=== PATIENT | male | born 1950 | race Caucasian/White ===

== ENCOUNTER 2017-10-18 09:37 | Inpatient (IN) | payer BC, OTHER ==
[~2017-10-18] VITALS: Ht 170.2 cm; Wt 60.3 kg
[2017-10-19] VITALS (7 sets, daily range): BP systolic 72–143; BP diastolic 53–88
[2017-10-19] MEDS ORDERED: DIAZEPAM 10 MG TABLET PO PRN ×2 (00:15)
[2017-10-19] MEDS ORDERED: hydrALAZINE HCL 50 MG TABLET PO PRN (00:15)
[2017-10-19] MEDS ORDERED: METHOCARBAMOL 750 MG TABLET PO PRN (00:15)
[2017-10-19] MEDS ORDERED: diphenhydrAMINE 50 MG CAPSULE PO PRN (00:15)
[2017-10-19] MEDS ORDERED: ALBUTEROL SULFATE 2.5 MG/ 0.5 ML NEBU NEB PRN (00:15)
[2017-10-19] MEDS ORDERED: MIRALAX 17 GM POWD.PACK PO PRN (00:15)
[2017-10-19] MEDS ORDERED: DIAZEPAM 5 MG TABLET PO PRN (00:15)
[2017-10-19] MEDS ORDERED: IBUPROFEN 600 MG TABLET PO PRN (00:15)
[2017-10-19] MEDS ORDERED: LOPERAMIDE HCL 2 MG CAPSULE PO PRN ×2 (00:15)
[2017-10-19] MEDS ORDERED: MAGNESIUM HYDROXIDE 30 ML LIQUID UDC PO PRN (00:15)
[2017-10-19] MEDS ORDERED: CLONIDINE HCL 0.1 MG TABLET PO PRN (00:15)
[2017-10-19] MEDS ORDERED: MAG HYDROX/AL HYDROX/SIMETH 30 ML LIQUID UDC PO PRN (00:15)
[2017-10-19] MEDS ORDERED: DOCUSATE SODIUM 250 MG CAPSULE PO PRN (00:15)
[2017-10-19] MEDS ORDERED: ONDANSETRON ODT 4 MG TAB.RAPDIS SL PRN (00:15)
[2017-10-19] MEDS ORDERED: DICYCLOMINE HCL 20 MG TABLET PO PRN (00:15)
[2017-10-19] MEDS ORDERED: BUPRENORPHINE HCL 2 MG TAB.SUBL SL PRN (00:15)
[2017-10-19] MEDS ORDERED: LORAZEPAM 2 MG/1 ML VIAL IM PRN (00:15)
[2017-10-19] MEDS ORDERED: ACETAMINOPHEN 325 MG TABLET PO PRN (00:15)
[2017-10-19] MEDS ORDERED: ONDANSETRON 4 MG/2 ML VIAL IM PRN (00:15)
--- NOTE | 2017-10-19 01:00 | NUR ---
Pre-admission assessment Patient is a 67-year old, male, seen at intake, AAOx4, no SOB and no anxiety noted at this time. Discussed with patient admission policies of the unit. Patient is coherent and able to respond to questions appropriately. Patient reported that he is from [place], [place]. Pt is ambulatory with steady gait. Pt reports using these substance daily: Switchback, Valium and Xanax PO daily for the last 6 months. Vital signs taken and as follows: SQ=163/87, P=83, O2 sat on RA=91%, RR=16, T=98.6. Per pt, he has low SPO2 baseline because of his severe COPD. Pt verbalized instructions and teachings regarding disposal of narcotic and other controlled home meds, unit protocols such as taking of vital signs Q4H and handling and disposal of contraband.
[2017-10-19 01:10] LABS: BASOPHILS # (AUTO) 0.1 K/uL (0.0-8.0); BASOPHILS % (AUTO) 0.9 % (0.0-2.0); EOSINOPHILS # (AUTO) 0.3 K/uL (0.0-0.7); EOSINOPHILS % (AUTO) 3.5 % (0.0-7.0); HEMATOCRIT 51.2 % (36.7-47.1); HEMOGLOBIN 17.5 g/dL (12.5-16.3); LYMPHOCYTES % (AUTO) 10.6 % (20.5-51.5); MEAN CORPUSCULAR HEMOGLOBIN 32.3 uug (23.8-33.4); MEAN CORPUSCULAR HGB CONC 34 g/dL (32.5-36.3); MEAN CORPUSCULAR VOLUME 94.6 fL (73.0-96.2); MONOCYTES # (AUTO) 0.7 K/uL (2.0-10.0); MONOCYTES % (AUTO) 6.7 % (0.0-11.0); NEUTROPHILS # (AUTO) 7.7 K/uL (1.8-8.9); NEUTROPHILS % (AUTO) 78.3 % (38.5-71.5); PLATELET COUNT (AUTO) 201 K/uL (152-348); RED BLOOD CELL COUNT(AUTO) 5.41 MIL/uL (4.06-5.63); WHITE BLOOD COUNT (AUTO) 9.8 K/uL (3.6-10.2)
[2017-10-19 01:20] LABS: ALANINE AMINOTRANSFERASE 31 U/L (16-63); ALKALINE PHOSPHATASE 51 U/L (50-136); ASPARTATE AMINOTRANSFERASE 53 U/L (15-37); BILIRUBIN,TOTAL 1.3 mg/dL (0.2-1.0); CARBON DIOXIDE 30 mmol/L (21-32); CHLORIDE 104 mmol/L (98-107); CREATININE 1.3 mg/dL (0.6-1.3); GLUCOSE 109 mg/dL (74-106); POTASSIUM 3.6 mmol/L (3.5-5.1); TOTAL PROTEIN, SERUM 7.4 g/dL (6.4-8.2); UREA NITROGEN, BLOOD 21 mg/dL (7-18)
[2017-10-19] MEDS ORDERED: DULO60CA45 PO (01:20)
[2017-10-19] MEDS ORDERED: FINA5TAB3 PO (01:20)
[2017-10-19] MEDS ORDERED: TAMS0.4C34 PO (01:20)
[2017-10-19] MEDS ORDERED: OMEP40CA37 PO (01:20)
[2017-10-19] MEDS ORDERED: TIOT18CA3 IH (01:20)
[2017-10-19] MEDS ORDERED: BUDE10.2 IH (01:20)
[2017-10-19] MEDS ORDERED: IRBE150T30 PO (01:20)
[2017-10-19] MEDS ORDERED: FLUO60SO3 TP (01:20)
[2017-10-19 01:32] LABS: ETHANOL < 3 MG/DL (0-0)
[2017-10-19 01:36] LABS: *AMPHETAMINE, URINE NEGATIVE (NEGATIVE); *BARBITURATE, URINE NEGATIVE (NEGATIVE); *CANNABINOID, URINE NEGATIVE (NEGATIVE); *COCCAINE, URINE NEGATIVE (NEGATIVE); *OPIATE, URINE NEGATIVE (NEGATIVE); *PHENCYCLIDINE SCREEN,URINE NEGATIVE (NEGATIVE)
--- NOTE | 2017-10-19 02:10 | NUR ---
ADMISSION Patient is a 67-year old, male, admitted and escorted by SMALL ENGINE MECHANIC at 0110 to unit. Patient verbalized that he lives in a house with his in [place], [place]. Skin check done, with healing abrasion noted on the right elbow. No bleeding noted. Patient denies Suicidal Ideation nor Homicidal Ideation. No edema noted. Per pt, he sometimes develops edema on BLE due to severe COPD. Pt is ambulatory with steady gait. Pt stands 5'7" and weighs 133 pounds per bed scale. Vital signs are as follows: BP-118/74, T-98.1, P-84, RR-18 and SPO2 on RA=92%. Patient is AAOx4 and with anxiety noted at this time. Patient noted to be forgetful. Lung sounds appear diminished on all ochoa upon auscultation. With non-productive cough noted and bowel sounds are present on all quadrants. PERRLA and pupils are 2 mm upon visual check. Pt denies allergies, history of seizures, on Regular Diet and is Full Code. Per pt, withdrawal symptoms are cold sweats, hot flushes, anxiety, depression, restless legs, emotional volatility, generalized muscle pain, insomnia and forgetfulness. Pt reports that he used these substance daily: 1) [place] 10/325 mg- 6 pills PO daily x 6 months 2) Valium 15 mg PO daily x 6 months 3) Xananx 4 mg PO daily x 6 months Patient verbalized the she does not take other substances besides the ones mentioned above. Patient also denies smoking tobacco/cigarettes. Patient informed PMHx of BPH,Urinary Retention, Hypertension, Hyperlipidemia, Severe COPD, GERD, Anxiety, Depression, Migraine, Scoliosis, Hepatitis C, Oral Fungus, Leg Cramps, BLE Edema and Multiple Surgeries from a fall in the 1960s. Home meds were reconciled. No Psych MD as of the moment and PCP is Dr. Lind. Patient was placed on a Valium taper, ending on 10/23 PM. Oriented patient to room and instructed with the use of the call light, placed within reach. Fall, universal, seizure and safety precautions implemented. Patient c/o 2/10 generalized pain. All needs met. Information relayed to Dr. Morales. Patient refused PNA vaccine and Flu vaccine. COWS=7, CIWA=8. Will continue to monitor.
[2017-10-19] MEDS ORDERED: LINA72CA PO (02:34)
--- NOTE | 2017-10-19 07:04 | NUR ---
End of Shift RN note Pt asleep on bed, continues to be anxious and melancholic, AAOx4 and forgetful. Pt appears older than stated age. Pt was having some delay in responding to questions. SPO2 on RA continues to hover between 90-92% and pt refused O2 supplement. DVT pumps at bedside and patient refused for the sleeves to be applied. With breathing treatment PRN. Skin appears to be tenting. With 2/10 generalized pain and tremors noted. Pt slept for 4 hours. Latest COWS=7, CIWA=7. Endorsed to AM shift nurse for continuity of care.
--- NOTE | 2017-10-19 07:20 | NUR ---
START OF SHIFT RECEIVED PT RESTING IN BED, SEEMS TO BE CONFUSED BUT A/OX4. RESPIRATIONS EVEN AND UNLABORED. PT DENIES SOB. PT C/O LOWER BACK AND NECK PAIN 04/07. PT REPORTS HAVING CHILLS, SWEATING, PILOERECTION OF THE SKIN, FEELING COLD, GENERALIZED BODY ACHES, ANXIETY, RESTLESSNESS, SENSITIVITY TO LIGHT, PINS AND NEEDLES, NUMBNESS SENSATIONS, AND BURNING SENSATIONS IN THE HANDS AND FEET. PT STATES, "I DON'T HAVE MUCH OF AN APPETITE." ENCOURAGED PT TO INCREASE FLUIDS TO PROMOTE HYDRATION. SIDE RAILS UPX2 AND PADDED, BED IS IN LOWEST POSITION. CALL LIGHT WITHIN REACH. ALL SAFETY MEASURES IN PLACE. WILL CONTINUE TO MONITOR. Addendum: 10/19/17 at 1156 by SHONDA AGUILAR RN SCD AT BEDSIDE.
[2017-10-19] MEDS ORDERED: DIAZEPAM 10 MG TABLET PO SCH (09:00)
[2017-10-19] MEDS ORDERED: PATIENT MAY USE OWN MED- MD OK PO SCH ×2 (09:15→21:00)
[2017-10-19] MEDS ORDERED: PATIENT MAY USE OWN MED- MD OK PO PRN (09:15)
--- NOTE | 2017-10-19 09:16 | NUR ---
PRN SUBUTEX 4 MG SL PRN FOR COWS 16. PT C/O CHILLS, SWEATING, STOMACH CRAMPS, GENERALIZED BODY ACHES, PILOERECTION OF THE SKIN AND TREMORS SEEN. WILL MONITOR FOR EFFECTIVENESS.
--- NOTE | 2017-10-19 10:20 | NUR ---
REASSESSMENT PT APPEARS CALM, REPORTS MED WAS EFFECTIVE FOR S/S OF W/D. COWS 12.
[2017-10-19] MEDS ORDERED: LORAZEPAM 1 MG TABLET PO PRN ×2 (11:30)
[2017-10-19] MEDS ORDERED: LORAZEPAM 1 MG TABLET PO SCH (15:00)
--- NOTE | 2017-10-19 15:45 | NUR ---
1500 ATIVAN 2 MG PO TAPER DOSE HELD D/T PT IS TOO SEDATED.
--- NOTE | 2017-10-19 16:00 | NUR ---
DEFERRED COWS/CIWA DUE TO PT SLEEPING. Addendum: 10/19/17 at 1920 by SHONDA AGUILAR RN PT AROUSABLE TO TOUCH AND WAS ABLE TO VERBAL RESPONSES AND FOLLOW COMMANDS. PT STATED, "I FEEL MUCH BETTER." PT'S SKIN IS MOIST TO TOUCH. ENCOURAGED PT TO INCREASE FLUIDS. ALL SAFETY MEASURES IN PLACE. WILL CONTNUE TO MONITOR.
[2017-10-19] MEDS ORDERED: PATIENT MAY USE OWN MED- MD OK INH SCH (17:00)
--- NOTE | 2017-10-19 17:30 | NUR ---
RAPID RESPONSE NOTE RAPID RESPONSE WAS CALLED FOR PT. PT WAS AROUSABLE TO VERBAL AND TACTILE STIMULATION. PT OPENED EYES FOR 2 SECONDS AT A TIME. PT WAS ABLE TO FOLLOW COMMANDS. PT WAS NOT ABLE TO RESPOND VERBALLY. PT WAS ABLE TO RAISE ARMS ABOVE HEAD DRIFTING AFTER 3 SECS. PT WAS GIVEN SMALL SIPS OF WATER AND PT WAS ABLE TO SWALLOW WATER. PT WAS NOT ABLE TO RESPOND VERBALLY. VS WERE BP:72/53, HR: 120, O2 SAT: 52% ON RA. RAPID RESPONSE CALLED AT 1650. DR. WELLS NOTIFIED. PT WAS TRANSFERRED TO AT 1715. VS PRIOR TO TRANSFER WERE BP: 92/64, HR:115, RR: 10, O2 SAT: 80% ON 3L NC, T: 98.0, BS: 150. Addendum: 10/19/17 at 1811 by SHONDA AGUILAR RN REPORT ON PT AND HOME MEDS GIVEN TO ER. Addendum: 10/19/17 at 1827 by SHONDA AGUILAR RN RAPID RESPONSE/TRANSFER TO ER NOTE
[2017-10-20 08:07] LABS: HEPATITIS B SURFACE AG Negative (Negative)
[2017-10-20] MEDS ORDERED: FINASTERIDE 5 MG PO SCH (09:00)
[2017-10-20] MEDS ORDERED: TUBERCULIN,PURIF.PROT.DERIV. 5 TU/0.1 ML TEST ID ONE (09:00)
[2017-10-20] MEDS ORDERED: SPIRIVA INH SCH (09:00)
[2017-10-20] MEDS ORDERED: LORAZEPAM 1 MG TABLET PO SCH (09:00)
[2017-10-20] MEDS ORDERED: DIAZEPAM 10 MG TABLET PO SCH (09:00)
[2017-10-20] MEDS ORDERED: PATIENT MAY USE OWN MED- MD OK PO SCH (09:00)
[2017-10-21] MEDS ORDERED: DIAZEPAM 5 MG TABLET PO SCH (09:00)
[2017-10-21] MEDS ORDERED: LORAZEPAM 1 MG TABLET PO SCH (09:00)
[2017-10-22] MEDS ORDERED: LORAZEPAM 1 MG TABLET PO SCH (09:00)
[2017-10-22] MEDS ORDERED: DIAZEPAM 5 MG TABLET PO SCH (09:00)
[2017-10-23] MEDS ORDERED: DIAZEPAM 5 MG TABLET PO SCH (09:00)
[2017-10-23] MEDS ORDERED: LORAZEPAM 1 MG TABLET PO SCH (09:00)
[2017-10-27] MEDS ORDERED: CLON1PAT TD (16:56)
[2017-10-27] MEDS ORDERED: METO50TA16 PO (16:56)
[2017-10-27] MEDS ORDERED: CEFE1VIA7 IM (16:56)
[2017-10-27] MEDS ORDERED: ATOR40TA PO (16:56)
[2017-10-27] MEDS ORDERED: ALBU1.25 NEB (16:56)
[2017-10-27] MEDS ORDERED: QUET25TA PO (16:56)
[2017-10-27] MEDS ORDERED: AMLO10TA2 PO (16:56)
[2017-10-27] MEDS ORDERED: ASPI81TA31 PO (16:56)
[2017-10-27] MEDS ORDERED: FLUC100T8 PO (16:56)
--- NOTE | 2017-10-27 18:43 | NUR ---
ON UNIT Patient arrived on the unit at 183, received report from: Paolo med surg nurse. Patient on the unit via gurney escorted by two wait staff, immediately placed patient on 1: 1 sitter for safety precautions. Safety measures are in place. Call light with in reach. Fall and seizure precautions observed and in place. As per report: Received report from Paolo med surg nurse. Per report patient is a 67 year old male. Patient was transferred from ICU- to telemetry unit to med surg unit. Patient is alert to self, per nurse patient with episodes of confusion, scrambled words and delirium with episodes of agitation. Patient has a sitter 1:1 for safety precautions. Last BP: 142/89 hr: 105. Patient has past medical history of: HTN, BPH, COPD, Hep c +, GERD, scoliosis, Opiate/bzo dependence. Patient admitting diagnoses at [facility] due acute respiration failure. Patient is NKA, full code; puree diet for aspiration precautions per Nurse Paolo patient is able to tolerate oral pills well. Patient is currently on 2L/min via NC of O2. Patient has picc line on right upper arm, triple lumen; patients Rodriguez catheter discontinued in med surg. Patient had PT eval today and are able to ambulate 40 feet with 50% assistance. Patient had sputum culture done, as per results patient has respiratory infection (Inessa albicans). CXR done, per results infiltrates. Per report patient had wheezing and breathing treatment was given. Addendum: 10/27/17 at 1856 by JIMMY PARKER LVN per report, patient did not receive any ativan or morphine while on med surg for today.
--- NOTE | 2017-10-27 18:58 | NUR ---
END OF SHIFT Patient currently in bed, with 1: 1 sitter, is confused and disoriented, patient is alert to name. patient at high risk for fall and self injury d/t poor safety awareness continues under very close observation. seizure precautions in place. patient currently with o2 2l/min via NC, patient with multiple episodes of removing NC. reapplied as needed. bp: 151/86 hr: 105 r: 20 t: 98.0 o2 sat: 98% with O2 2L/min VIA NC. patient endorsed to floor covering printer nurse, all pertinent information was discussed. safety measures are in place. will continue to monitor.
--- NOTE | 2017-10-27 19:15 | NUR ---
Start of Shift Note: Received report from day shift nurse. Patient is a 67 year old male, presented in his room and is bed bound. Patient awake, alert & oriented x1. Patient is awake, disoriented & confused. Patient requires to be called multiple times, however does not respond to name. Patient unable to follow direction and unable to answer questions. Pt noted to be very confused, and is noted to be biting on nasal cannula, despite trying to gently remove NC from pts mouth. Pt is also biting his own nails and noted to be extremely restless. On 1:1 sitter for safety precaution within arms reach. Per report patient is high risk for fall d/t pt multiple attempts to get out of bed. Patient currently is incontinent and wears diaper. Pt noted with redness on coccyx area & elbows, skin noted to be intact. Pt also noted with bruising on bilateral arms. Patient has a 3 lumen PICC line on his right upper arm patent and intact. Pt continuously picks at PICC line site. Site was covered with Kerlix to prevent pt from picking at the PICC line site. On O2 via nasal cannula at 2Lpm. No shortness of breath noted at this time. Abdomen soft & non-distended. No N/V/D noted. Pt appears restless and unable to sit still. No s/s of pain/discomfort noted. No facial grimacing noted. Continue to closely monitor patient. Vitals noted within normal range. Temp: 97.4, B/P 131/92, GA 97, RR 16, O2Sat @ 94%. Safety measures in place. Bed locked in lowest position. Both side rails up. Call light within pts reach. Will continue to monitor patient.
[2017-10-27 20:00] VITALS: BP 131/92
[2017-10-27] MEDS ORDERED: MAG HYDROX/AL HYDROX/SIMETH 30 ML LIQUID UDC PO PRN (20:00)
[2017-10-27] MEDS ORDERED: ONDANSETRON 4 MG/2 ML VIAL IM PRN (20:00)
[2017-10-27] MEDS ORDERED: DICYCLOMINE HCL 20 MG TABLET PO PRN (20:00)
[2017-10-27] MEDS ORDERED: CLONIDINE-TTS 1 PATCH TD SCH (20:00)
[2017-10-27] MEDS ORDERED: QUETIAPINE FUMARATE 25 MG TABLET PO PRN (20:00)
[2017-10-27] MEDS ORDERED: CLONIDINE HCL 0.1 MG TABLET PO PRN (20:00)
[2017-10-27] MEDS ORDERED: MAGNESIUM HYDROXIDE 30 ML LIQUID UDC PO PRN (20:00)
[2017-10-27] MEDS ORDERED: LOPERAMIDE HCL 2 MG CAPSULE PO PRN ×2 (20:00)
[2017-10-27] MEDS ORDERED: ONDANSETRON ODT 4 MG TAB.RAPDIS SL PRN (20:00)
[2017-10-27] MEDS ORDERED: ACETAMINOPHEN 325 MG TABLET PO PRN (20:00)
[2017-10-27] MEDS ORDERED: hydrALAZINE HCL 25 MG TABLET PO PRN (20:00)
[2017-10-27] MEDS ORDERED: MIRALAX 17 GM POWD.PACK PO PRN (20:00)
[2017-10-27] MEDS ORDERED: LORAZEPAM 1 MG TABLET PO PRN (20:00)
[2017-10-27] MEDS ORDERED: LORAZEPAM 2 MG/1 ML VIAL IM PRN (20:00)
[2017-10-27 20:44] LABS: BASOPHILS % (AUTO) 0.1 % (0.0-2.0); HEMATOCRIT 45.7 % (36.7-47.1); HEMOGLOBIN 15.2 g/dL (12.5-16.3); LYMPHOCYTES # (AUTO) 0.4 K/uL (20.0-40.0); LYMPHOCYTES % (AUTO) 3.5 % (20.5-51.5); MEAN CORPUSCULAR HEMOGLOBIN 31.3 uug (23.8-33.4); MEAN CORPUSCULAR HGB CONC 33 g/dL (32.5-36.3); MEAN CORPUSCULAR VOLUME 93.9 fL (73.0-96.2); MONOCYTES # (AUTO) 1.6 K/uL (2.0-10.0); MONOCYTES % (AUTO) 12.2 % (0.0-11.0); NEUTROPHILS # (AUTO) 10.8 K/uL (1.8-8.9); NEUTROPHILS % (AUTO) 84.2 % (38.5-71.5); PLATELET COUNT (AUTO) 188 K/uL (152-348); RED BLOOD CELL COUNT(AUTO) 4.86 MIL/uL (4.06-5.63); WHITE BLOOD COUNT (AUTO) 12.9 K/uL (3.6-10.2)
[2017-10-27] MEDS ORDERED: QUETIAPINE FUMARATE 25 MG TABLET PO SCH (21:00)
[2017-10-27 21:02] LABS: ETHANOL < 3 MG/DL (0-0)
[2017-10-27 21:06] LABS: ALANINE AMINOTRANSFERASE 38 U/L (16-63); ALKALINE PHOSPHATASE 56 U/L (50-136); AMYLASE 47 U/L (25-115); ASPARTATE AMINOTRANSFERASE 31 U/L (15-37); BILIRUBIN,TOTAL 0.9 mg/dL (0.2-1.0); CARBON DIOXIDE 29 mmol/L (21-32); CHLORIDE 105 mmol/L (98-107); GLUCOSE 148 mg/dL (74-106); LIPASE 237 U/L (73-393); MAGNESIUM 1.9 mg/dL (1.8-2.4); POTASSIUM 3.4 mmol/L (3.5-5.1); TOTAL PROTEIN, SERUM 5.9 g/dL (6.4-8.2); UREA NITROGEN, BLOOD 22 mg/dL (7-18)
[2017-10-27 21:31] LABS: THYROID STIMULATING HORMONE 1.689 mIU/mL (0.358-3.740)
[2017-10-27] MEDS ORDERED: THIAMINE HCL 200 MG/2 ML VIAL IM ONE (22:00)
[2017-10-27] MEDS: CEFEPIME HCL 1 G in IV DEXTROSE 5% 50 ML IV SCH (22:00)
[2017-10-27] MEDS: FLUCONAZOLE 200 MG/NS 100ML IV 100 MG in PREMIXED 1 EACH IV SCH (22:00)
[2017-10-27] MEDS: FAMOTIDINE 20 MG TABLET PO SCH (22:16)
[2017-10-27] MEDS: METOPROLOL TARTRATE 50 MG TABLET PO SCH (22:17)
[2017-10-27] MEDS: ATORVASTATIN 40 MG TABLET PO SCH (22:17)
[2017-10-27] MEDS: LORAZEPAM 1 MG TABLET PO PRN (22:17)
--- NOTE | 2017-10-27 22:17 | NUR ---
PRN Administration Pt unable to keep still, remains confused and agitated. Pt is very restless and tries to get out of bed. Patient keeps touching PICC line and tries to pull on it. Pt talks to himself, words are mumble and scrambled. Upon direction, pt becomes agitated and aggressive towards staff, removing his bed covers and undresses himself while attempting to get out of bed. Medicated patient with Ativan 2mg PO and Seroquel 50mg PO HS as ordered. Fall precautions observed. Continue to closely monitor patient.
[2017-10-27] MEDS ORDERED: CEFEPIME HCL 1 G VIAL ONE (22:35)
[2017-10-27] MEDS ORDERED: FLUCONAZOLE 200 MG/100 ML PIGGYBACK ONE (22:35)
[2017-10-27] MEDS ORDERED: CLONIDINE-TTS 1 PATCH TD ONE (22:51)
--- NOTE | 2017-10-27 23:17 | NUR ---
PRN Reassessment Pt able to remain in bed after medication administration. Pt noted with decreased in agitation. Pt still noted with confusion and talks to himself. Continue to reorient patient. Patient wet himself on the bed while attempting to take off his diaper. Beddings, linens and diapers were changed and kept pt comfortable. Safety precautions observed. 1:1 sitter at bedside. Will continue to monitor.
[2017-10-28] VITALS: BP 134/83
--- NOTE | 2017-10-28 | NUR ---
CIWA/ COWS DEFERRED Pt is disoriented & confused. Pt not able to answer questions at this time. Unable to assess COWS and CIWA. COWS and CIWA deferred.
--- NOTE | 2017-10-28 00:20 | NUR ---
Pt again presents with confusion, increased agitation, yells at staff while attempting to redirect him. Pt attempted to crawl out of bed, and becomes agitated again when staff gently reposition him. Medicated patient with Ativan 2mg PO, however patient spits out medication. Called Psych MD with new orders noted.
[2017-10-28] MEDS: LORAZEPAM 1 MG TABLET PO PRN (00:21)
[2017-10-28] MEDS ORDERED: OLANZAPINE 10 MG VIAL IM ONE (00:45)
[2017-10-28] MEDS ORDERED: LORAZEPAM 2 MG/1 ML VIAL IM PRN (00:45)
[2017-10-28] MEDS ORDERED: LORAZEPAM 2 MG/1 ML VIAL IM ONE ×2 (01:00)
[2017-10-28 01:15] VITALS: BP 122/83
--- NOTE | 2017-10-28 01:18 | NUR ---
Pt still remains restless and agitated in bed. Pt medicated with Zyprexa 5mg IM x1, & Ativan 1mg IM x1 as ordered. Medications effective after medication administration. Vitals noted WNL. Will continue to monitor patient.
[2017-10-28] MEDS: CEFEPIME HCL 1 G in IV DEXTROSE 5% 50 ML IV SCH ×3 (06:08→22:05)
--- NOTE | 2017-10-28 07:20 | NUR ---
End of Shift Note: Patient currently asleep in bed. 1:1 sitter at bedside within arms reach. Patient on O2 vial nasal cannula @ 3lpm. Patient is a high risk for falls d/t pt frequently tries to get out of bed when awake. Pt remained confused and disoriented throughout my shift. Patient is incontinent and wears a diaper. Pt unable to use urinal and needs frequent diaper change to maintain skin integrity. Pt on IV ATB Cefepime and Diflucan for Pneumonia. Pt needs close monitoring. Pt received PRN Ativan 2mg PO x2, one time dose of Zyprexa 5mg IM & Ativan 1mg IM for agitation and were effective. Pt was able to sleep for 4-5 hours. Fluid intake is 250ml. Voided 3x. with no bowel movement. Will continue to encourage pt to increase fluid intake. All needs attended. Safety measures in place. Will endorse to day shift nurse
--- NOTE | 2017-10-28 07:30 | NUR ---
START OF SHIFT Pt 67 y/o male admitted for opioid and benzo withdrawal. Pt received in room on bed awake. Pt alert and oriented to name, place, and time. Respirations even and unlabored. anxious and restless, observed attempting to climb out of bed unsafely. Pt hard to redirect. Pt uncooperative with staff. Pt with sitter 1:1 for safety. Pt observed rambling to self, making no sense of conversation. Pt not able respond appropriately questions asked of him. pt with picc line on right arm intact and patent with no redness and is not hot to touch, saline locked. It was reported that pt slept for 5 hours last night. Bed on lowest position with side rails x 2 up for safety. Addendum: 10/28/17 at 1821 by ANDRES GONZALEZ RN correction pt alert and oriented to name only.
--- NOTE | 2017-10-28 07:53 | NUR ---
PRN Pt agitated and aggressive. Pt attempting to hit staff and pulling on NC tubing. Pt non-redirectable. Seroquel po prn per MD order given and tolerated well.
[2017-10-28 08:00] VITALS: BP 138/78
--- NOTE | 2017-10-28 08:00 | NUR ---
CIWA/ COWS DEFERRED Pt alert and oriented to name only, confused, agitated, and not cooperative. Pt not able to answer questions to assess COWS and CIWA. COWS and CIWA deferred.
--- NOTE | 2017-10-28 08:30 | NUR ---
MD COMMUNICATION MD aware of troponin =0.066 and wbc results.
--- NOTE | 2017-10-28 08:53 | NUR ---
PRN EVAL Pt restless, but follows some redirection with alot of prompting. Pt alert and oriented to name only. Pt remains with sitter 1:1 for safety.
[2017-10-28] MEDS ORDERED: TUBERCULIN,PURIF.PROT.DERIV. 5 TU/0.1 ML TEST ID ONE (09:00)
[2017-10-28] MEDS: DOCUSATE SODIUM 250 MG CAPSULE PO SCH (09:00)
--- NOTE | 2017-10-28 09:00 | NUR ---
NSG INTERVENTION Turned pt side as tolerated. Pt confused and uncooperative. Encouraged to have pt reposition every 2 hours as tolerated.
[2017-10-28] MEDS ORDERED: Z GUARD REMEDY PASTE 57 GM TUBE TOP PRN (10:15)
[2017-10-28] MEDS ORDERED: LORAZEPAM 1 MG TABLET PO PRN ×2 (10:15)
[2017-10-28] MEDS: FAMOTIDINE 20 MG TABLET PO SCH ×2 (10:22→21:00)
[2017-10-28] MEDS: MULTIVITAMINS,THERAPEUTIC TABLET PO SCH (10:22)
[2017-10-28] MEDS: METOPROLOL TARTRATE 50 MG TABLET PO SCH ×2 (10:23→21:00)
[2017-10-28] MEDS: ASPIRIN 81 MG TAB.CHEW GT SCH (10:24)
[2017-10-28] MEDS: THIAMINE HCL 100 MG TABLET PO SCH (10:24)
[2017-10-28] MEDS: predniSONE 20 MG TABLET PO SCH (10:25)
[2017-10-28] MEDS: FOLIC ACID 1 MG TABLET PO SCH (10:25)
[2017-10-28] MEDS: AMLODIPINE 10 MG TABLET PO SCH (10:25)
--- NOTE | 2017-10-28 10:30 | NUR ---
PT PT on unit and walked with pt around the unit with assist and FWW.
[2017-10-28 12:00] VITALS: BP 126/70
--- NOTE | 2017-10-28 12:00 | NUR ---
CIWA/ COWS DEFERRED Pt alert and oriented to name only, confused, and not cooperative. Pt not able to answer questions to assess COWS and CIWA. COWS and CIWA deferred.
--- NOTE | 2017-10-28 12:39 | NUR ---
MD COMMUNICATION Pt was seen by MD with new orders for midline on via left arm. Midline nurse made aware and awaiting call back.
[2017-10-28] MEDS: ALBUTEROL SULFATE 2.5 MG/ 0.5 ML NEBU NEB PRN (14:38)
[2017-10-28] MEDS: IPRATROPIUM BROMIDE 0.5 MG/2.5 ML NEBU NEB PRN (14:41)
[2017-10-28 15:04] LABS: BASOPHILS # (AUTO) 0.1 K/uL (0.0-8.0); BASOPHILS % (AUTO) 0.9 % (0.0-2.0); EOSINOPHILS % (AUTO) 0.3 % (0.0-7.0); HEMATOCRIT 49.7 % (36.7-47.1); HEMOGLOBIN 16.3 g/dL (12.5-16.3); LYMPHOCYTES # (AUTO) 0.4 K/uL (20.0-40.0); LYMPHOCYTES % (AUTO) 3.2 % (20.5-51.5); MEAN CORPUSCULAR HEMOGLOBIN 31.1 uug (23.8-33.4); MEAN CORPUSCULAR HGB CONC 33 g/dL (32.5-36.3); MEAN CORPUSCULAR VOLUME 94.4 fL (73.0-96.2); MONOCYTES # (AUTO) 0.7 K/uL (2.0-10.0); MONOCYTES % (AUTO) 5.9 % (0.0-11.0); NEUTROPHILS # (AUTO) 10.9 K/uL (1.8-8.9); NEUTROPHILS % (AUTO) 89.7 % (38.5-71.5); PLATELET COUNT (AUTO) 245 K/uL (152-348); RED BLOOD CELL COUNT(AUTO) 5.26 MIL/uL (4.06-5.63); WHITE BLOOD COUNT (AUTO) 12.1 K/uL (3.6-10.2)
[2017-10-28 15:10] LABS: CREATININE 1.2 mg/dL (0.6-1.3); POTASSIUM 3.8 mmol/L (3.5-5.1)
[2017-10-28 16:00] VITALS: BP 125/72
[2017-10-28 16:53] LABS: PHOSPHOROUS 4.7 mg/dL (2.5-4.9)
[2017-10-28] MEDS: FLUTICASONE/VILANTEROL 1 EACH BLST.W.DEV INH SCH (18:39)
--- NOTE | 2017-10-28 18:46 | NUR ---
END OF SHIFT Pt 67 y/o male admitted for opioid and benzo withdrawal. Pt alert and oriented to name only. Respirations even and unlabored. Pt anxious and restless, observed attempting to climb out of bed unsafely this morning. Pt hard to redirect. Pt uncooperative with staff. Pt with sitter 1:1 for safety. Pt observed rambling to self. Pt not able respond appropriately questions asked of him. All cows and ciwa deferred due to pt not able to respond appropriately to questions. Pt with picc line on right arm intact and patent with no redness and is not hot to touch, saline locked. Pt was seen by MD today. Pt mediation compliant. No ASE noted. Bed on lowest position with side rails x 2 up for safety.
--- NOTE | 2017-10-28 19:15 | NUR ---
Start of Shift Note: Received report from day shift nurse. Patient is a 67 year old male, presented in his room with his 1:1 sitter at bedside for safety precaution and for assistance. Patient is awake, alert & oriented to name. Patient appears anxious & restless in bed, observed trying to get up in bed and keeps taking off his nasal cannula. Frequent redirection needed for patient. Patient also observed talking to himself and talks without sense. Patient also unable to answer questions. Pt on O2 @ 2-3 Lpm via nasal cannula. No shortness of breath noted at this time. Patient has 3 lumen PICC line on his right upper arm and is currently on IV ATB Cefepime and Diflucan for PNA. Patient received PRN Seroquel during the day and was mildly effective per report. Vitals noted WNL. Continue to closely monitor patient. Safety measures in place. Bed locked in lowest position. Both side rails up. Call light within pts reach. Will continue to monitor patient.
[2017-10-28 20:00] VITALS: BP 117/75
[2017-10-28] MEDS ORDERED: QUETIAPINE FUMARATE 25 MG TABLET PO PRN (20:00)
[2017-10-28] MEDS: LACTOBACILLUS RHAMNOSUS GG 1 EACH CAPSULE PO SCH (21:00)
[2017-10-28] MEDS ORDERED: FLUTICASONE/SALMETEROL 250/50 INHALER INH SCH (21:00)
[2017-10-28] MEDS: ATORVASTATIN 40 MG TABLET PO SCH (21:00)
[2017-10-28] MEDS: QUETIAPINE FUMARATE 25 MG TABLET PO PRN (22:04)
--- NOTE | 2017-10-28 22:04 | NUR ---
PRN Seroquel Pt is restless, moves around in bed and unable to sit still. Pt noted with increase agitation, tries to remove nasal cannula from nose and bites it. 1:1 sitter at bedside. PRN Seroquel 50mg administered as ordered. Will continue to monitor patient.
[2017-10-28] MEDS: FLUCONAZOLE 200 MG/NS 100ML IV 100 MG in PREMIXED 1 EACH IV SCH (22:43)
--- NOTE | 2017-10-28 23:04 | NUR ---
PRN Reassessment Patient remains in bed and noted with decreased attempt of getting out of bed. Patient able to go to the bathroom with assistance. Pt remains confused but oriented to name. Patient still mumbles and talks with no sense. Continue to closely monitor patient. Will continue to monitor patient.
--- NOTE | 2017-10-29 00:16 | NUR ---
One time Ativan 2mg Patient noted with increase anxiety & agitation. Pt observed to be very restless and unable to sit still. Patient is trying to get out of bed and keeps on taking off his nasal cannula. Patient also observed biting his nasal cannula and pulling it. Medicated patient with Ativan 2mg PO as ordered. 1:1 sitter within arms reach. Safety precautions observed. Will continue to monitor patient.
[2017-10-29] MEDS ORDERED: LORAZEPAM 1 MG TABLET PO ONE ×2 (03:15)
--- NOTE | 2017-10-29 03:16 | NUR ---
One time dose of Ativan Patient still very restless in bed. Patient keeps getting out of bed and gets agitated when tries to redirect him. Patient still noted with confusion, he is uncooperative and does not follow redirection. One time dose of Ativan 2mg administered as ordered. 1:1 sitter at bedside. Safety precautions observed. Will continue to monitor patient.
[2017-10-29 03:23] VITALS: BP 142/92
--- NOTE | 2017-10-29 04:16 | NUR ---
PRN Reassessment Patient in bed with eyes close. Patient appear calm and comfortable. No shortness of breath noted. Respiration even & unlabored. 1:1 sitter at bedside. Safety measures observed. Closely monitor patient.
[2017-10-29] MEDS: CEFEPIME HCL 1 G in IV DEXTROSE 5% 50 ML IV SCH ×3 (06:11→22:02)
--- NOTE | 2017-10-29 07:12 | NUR ---
End of Shift Note: Patient currently asleep in bed. 1:1 sitter at bedside within arms reach. Patient on O2 vial nasal cannula @ 3lpm. Patient is a high risk for falls d/t pt frequently tries to get out of bed when awake. Pt remained confused and disoriented throughout my shift. Pt continues to mumbles and talks with no sense. Pt unable to answer questions being asked of him and unable to follow directions. All cows and ciwa deferred due to pt not able to respond appropriately to questions. Patient able to go to the bathroom with assistance. Pt requires frequent turning while in bed to maintain skin integrity. SCD in place. Pt continues on IV ATB Cefepime and Diflucan for Pneumonia. Pt needs close monitoring. Pt received Ativan 2mg PO x2, and PRN Seroquel 50mg for anxiety and agitation. Pt was able to sleep for 4-5 hours. Fluid intake is 250ml. Voided 3x. with no bowel movement. Will continue to encourage pt to increase fluid intake. All needs attended. Safety measures in place. Will endorse to day shift nurse
--- NOTE | 2017-10-29 07:30 | NUR ---
START OF SHIFT PATIENT IS A 66 YR OLD MALE ADMITTED TO [facility] ON 10/18/17 INITIALLY , PATIENT THEN SPENT APPROX 10 DAYS IN ICU/MED SURGE IN [facility] BEFORE RETURNING TO [facility] ON 10/27/17,ON ENTERING ROOM PATIENT IS ALERT AND ORIENTED TO NAME AND PLACE, GETS CONFUSED EASILY. DIAGNOSTIC TESTS SHOWS THAT PATIENT HAS PNEUMONIA, PICC LINE PRESENT IN RIGHT UPPER ARM , ANTIBIOTICS RUNNING AT THIS TIME. PATIENT IS ON A 1:1 WITH SITTER AT BEDSIDE FOR SAFETY. CIWA UNABLE TO ASSESS ON PM SHIFT DUE TO PATIENTS INABILITY TO COMPREHEND AND ANSWER QUESTIONS. PRN ATIVAN AND SEROQUEL GIVEN ON PM SHIFT. REPORT GIVEN OF A SMALL AREA OF REDNESS ON COCCYX WHICH HAD OINTMENT APPLIED AND COVERED, WILL CONTINUE TO MONITOR. 02 3L VIA NC GIVEN FOR DECREASED O2 SATS, WILL CONTINUE TO FOLLOW MD PLAN OF CARE.
[2017-10-29 08:00] VITALS: BP 156/73
[2017-10-29] MEDS: FAMOTIDINE 20 MG TABLET PO SCH ×2 (08:55→22:03)
[2017-10-29] MEDS: METOPROLOL TARTRATE 50 MG TABLET PO SCH ×2 (08:55→22:04)
[2017-10-29] MEDS: ASPIRIN 81 MG TAB.CHEW GT SCH (08:55)
[2017-10-29] MEDS: LACTOBACILLUS RHAMNOSUS GG 1 EACH CAPSULE PO SCH ×2 (08:55→22:03)
[2017-10-29] MEDS: predniSONE 20 MG TABLET PO SCH (08:56)
[2017-10-29] MEDS: THIAMINE HCL 100 MG TABLET PO SCH (08:56)
[2017-10-29] MEDS: FOLIC ACID 1 MG TABLET PO SCH (08:56)
[2017-10-29] MEDS: FLUTICASONE/VILANTEROL 1 EACH BLST.W.DEV INH SCH (08:56)
[2017-10-29] MEDS: MULTIVITAMINS,THERAPEUTIC TABLET PO SCH (08:56)
[2017-10-29] MEDS: AMLODIPINE 10 MG TABLET PO SCH (08:56)
[2017-10-29] MEDS ORDERED: QUETIAPINE FUMARATE 25 MG TABLET PO PRN (09:00)
[2017-10-29 09:32] LABS: BASOPHILS # (AUTO) 0.1 K/uL (0.0-8.0); BASOPHILS % (AUTO) 0.5 % (0.0-2.0); EOSINOPHILS # (AUTO) 0.3 K/uL (0.0-0.7); EOSINOPHILS % (AUTO) 2.7 % (0.0-7.0); HEMATOCRIT 51.7 % (36.7-47.1); HEMOGLOBIN 17.4 g/dL (12.5-16.3); LYMPHOCYTES # (AUTO) 1.2 K/uL (20.0-40.0); LYMPHOCYTES % (AUTO) 11.6 % (20.5-51.5); MEAN CORPUSCULAR HEMOGLOBIN 31.5 uug (23.8-33.4); MEAN CORPUSCULAR HGB CONC 34 g/dL (32.5-36.3); MEAN CORPUSCULAR VOLUME 93.8 fL (73.0-96.2); MONOCYTES # (AUTO) 1.1 K/uL (2.0-10.0); NEUTROPHILS # (AUTO) 8.1 K/uL (1.8-8.9); NEUTROPHILS % (AUTO) 75.2 % (38.5-71.5); PLATELET COUNT (AUTO) 225 K/uL (152-348); RED BLOOD CELL COUNT(AUTO) 5.52 MIL/uL (4.06-5.63); WHITE BLOOD COUNT (AUTO) 10.7 K/uL (3.6-10.2)
[2017-10-29] MEDS: DOCUSATE SODIUM 250 MG CAPSULE PO SCH (09:33)
[2017-10-29 09:43] LABS: CREATININE 1.2 mg/dL (0.6-1.3); POTASSIUM 3.4 mmol/L (3.5-5.1)
[2017-10-29] MEDS: ALBUTEROL SULFATE 2.5 MG/ 0.5 ML NEBU NEB PRN ×2 (09:53→15:33)
[2017-10-29] MEDS: IPRATROPIUM BROMIDE 0.5 MG/2.5 ML NEBU NEB PRN ×2 (09:53→15:33)
[2017-10-29 11:11] LABS: BAND % (MANUAL) 2 % (0-10); EOSINOPHILS % (MANUAL) 4 % (0-8); LYMPHOCYTES % (MANUAL) 13 % (20-40); METAMYELOCYTES % 1 % (0-1); MONOCYTES % (MANUAL) 5 % (2-10); MYELOCYTES % 1 % (0-0); NEUTROPHILS % (MANUAL) 74 % (42-75)
[2017-10-29 12:00] VITALS: BP 154/73
--- NOTE | 2017-10-29 14:11 | NUR ---
MIDLINE PWR GLIDE insert performed by Vascular legal billing analyst C/O STEVE CERVANTES.Gauge 18 [id number] on the left basilic vein near AC. Patent single lumen with execellent blood return and flush. STEVE SOLER RN.
[2017-10-29 16:00] VITALS: BP 157/82
[2017-10-29 16:09] LABS: HEPATITIS B SURFACE AG Negative (Negative)
--- NOTE | 2017-10-29 17:00 | NUR ---
RIGHT PICC LINE REMOVED
--- NOTE | 2017-10-29 18:41 | NUR ---
END OF SHIFT PATIENT IS A 66 YR OLD MALE ADMITTED TO [facility] ON 10/18/17 INITIALLY , PATIENT THEN SPENT APPROX 10 DAYS IN ICU/MED SURGE IN [facility] BEFORE RETURNING TO [facility] ON 10/27/17,ON ENTERING ROOM PATIENT IS ALERT AND ORIENTED TO NAME AND PLACE, GETS CONFUSED EASILY. DIAGNOSTIC TESTS SHOWS THAT PATIENT HAS PNEUMONIA, PICC LINE REMOVED FROM RIGHT UPPER ARM AND MIDLINE WAS INSERTED AT 1400 IN LEFT UPPER ARM. PATIENT IS ON A 1:1 WITH SITTER AT BEDSIDE FOR SAFETY. REPORT GIVEN OF A SMALL AREA OF REDNESS ON COCCYX WHICH HAD OINTMENT APPLIED AND COVERED, WILL CONTINUE TO MONITOR. 02 3L VIA NC GIVEN FOR DECREASED O2 SATS, PATIENT CONTINUES TO BE CONFUSED AND DISORIENTED AT TIMES. BREATHING TREATMENTS PERFORMED X2 TODAY BY RT. NO PRN MEDS REQUESTED OR REQUIRED. LAST CIWA 13 @ 1600. FLUID INTAKE THIS SHIFT 1400, 5 VOIDS AND 0 BM WILL CONTINUE TO FOLLOW MD PLAN OF CARE.
--- NOTE | 2017-10-29 19:30 | NUR ---
START OF SHIFT NOTE : Patient is a 67-year old, male, admitted for medically supervised withdrawal from opiate and benzo , pt. placed on ATIVAN PRN, is 1:1 for safety (unsteady gate, agitation), pt. has IV mid-line at left UA for antibiotics. Upon assessment pt. is resting in the room, alert, oriented x2 (to his name, place (I am in the hospital)), agitated and restless, but follows commands. He complains of tremor time to time, difficulty falling and staying asleep, increased level of anxiety, flashes time to time. Last CIWA=10, COWS=10 at 19:30. Educated patient regarding the importance of compliance to treatment and medication regime, patient verbalized understanding. All safety measures in place, side rails x2 in lower position. Will cont. to monitor patient closely.
[2017-10-29 20:00] VITALS: BP 145/85
[2017-10-29] MEDS: FLUCONAZOLE 200 MG/NS 100ML IV 100 MG in PREMIXED 1 EACH IV SCH (22:02)
[2017-10-29] MEDS: QUETIAPINE FUMARATE 25 MG TABLET PO PRN (22:03)
[2017-10-29] MEDS: ATORVASTATIN 40 MG TABLET PO SCH (22:04)
--- NOTE | 2017-10-29 23:00 | NUR ---
NURSING NOTE : Skin tear incident Pt. noted with agitation. Pt is a fall risk and attempted to get out of bed and remove PICC line. In the process, patient scratched his right lower arm causing a skin tear [id number] in size. Site cleansed with NS and covered with a dry dressing. MD notified. Photo taken and placed in chart. Psych MD notified and one time order for Seroquel 50mg provided. Order noted and carried out. Will continue to monitor.
[2017-10-29] MEDS ORDERED: QUETIAPINE FUMARATE 25 MG TABLET PO ONE (23:30)
--- NOTE | 2017-10-30 06:34 | NUR ---
END OF SHIFT NOTE : Patient is a 67-year old, male, admitted for medically supervised withdrawal from opiate and benzo , pt. placed on ATIVAN PRN, is 1:1 for safety (unsteady gate, agitation), pt. has IV mid-line at left UA for antibiotics. Pt. is partially compliant with a TX plan, restless and agitated during the night, one time order Seroquel 50mg PO given during night . CIWA, COWS taken when pt. was awake, last CIWA=10, COWS=10 at 04:00. [id number]=[id number] , voided x3, slept=4 hours. Safety measures in place : bed on lowest position with side rails x2 up for safety, all light within reach. Will continue to monitor closely and offer help.
--- NOTE | 2017-10-30 07:40 | NUR ---
START OF SHIFT Endorse rcvd from ongoing nurse, client's room feels stuffy. Client is sitting at the end of the bed, a/o to name, place, he presents anxious mood, flat affect, flushed face, fine tremors, clammy skin, he has difficulty concentrating. Client reports in a loud voice, feeling of panic, restless legs, and fatigue. Midline intact/patent on R AC. Client is on 1:1 for safety and unsteady gait. Encourage client to increase PO fluid as tolerated to facilitate detox. Encourage client to participate in ADL and to attend group therapy for skills to maintain sober. Last CIWA 8. Client slept 2 hrs. Seizure precautions rendered. Call light within reach.
[2017-10-30] MEDS: ALBUTEROL SULFATE 2.5 MG/ 0.5 ML NEBU NEB PRN (07:58)
[2017-10-30] MEDS: IPRATROPIUM BROMIDE 0.5 MG/2.5 ML NEBU NEB PRN (07:58)
[2017-10-30] MEDS: predniSONE 20 MG TABLET PO SCH (08:00)
[2017-10-30 08:30] VITALS: BP 152/105
[2017-10-30] MEDS: LACTOBACILLUS RHAMNOSUS GG 1 EACH CAPSULE PO SCH ×2 (08:38→21:28)
[2017-10-30] MEDS: FLUTICASONE/VILANTEROL 1 EACH BLST.W.DEV INH SCH (08:38)
[2017-10-30] MEDS: FOLIC ACID 1 MG TABLET PO SCH (08:39)
[2017-10-30] MEDS: ASPIRIN 81 MG TAB.CHEW GT SCH (08:39)
[2017-10-30] MEDS: FAMOTIDINE 20 MG TABLET PO SCH ×2 (08:39→21:28)
[2017-10-30] MEDS: DOCUSATE SODIUM 250 MG CAPSULE PO SCH (08:40)
[2017-10-30] MEDS: THIAMINE HCL 100 MG TABLET PO SCH (08:40)
[2017-10-30] MEDS: AMLODIPINE 10 MG TABLET PO SCH (08:41)
[2017-10-30] MEDS: METOPROLOL TARTRATE 50 MG TABLET PO SCH ×2 (08:41→21:28)
[2017-10-30] MEDS: MULTIVITAMINS,THERAPEUTIC TABLET PO SCH (08:42)
[2017-10-30] MEDS ORDERED: predniSONE 20 MG TABLET PO ONE (09:15)
--- NOTE | 2017-10-30 09:18 | NUR ---
Nursing notes One time dose Prednisone 20mg PO held, medication administered @ 0800
[2017-10-30 11:17] LABS: BASOPHILS # (AUTO) 0.1 K/uL (0.0-8.0); BASOPHILS % (AUTO) 0.3 % (0.0-2.0); EOSINOPHILS # (AUTO) 0.2 K/uL (0.0-0.7); LYMPHOCYTES # (AUTO) 0.8 K/uL (20.0-40.0); LYMPHOCYTES % (AUTO) 4.1 % (20.5-51.5); MEAN CORPUSCULAR HEMOGLOBIN 31.7 uug (23.8-33.4); MEAN CORPUSCULAR HGB CONC 34 g/dL (32.5-36.3); MEAN CORPUSCULAR VOLUME 94.6 fL (73.0-96.2); MONOCYTES # (AUTO) 1.7 K/uL (2.0-10.0); MONOCYTES % (AUTO) 8.2 % (0.0-11.0); NEUTROPHILS # (AUTO) 17.5 K/uL (1.8-8.9); NEUTROPHILS % (AUTO) 86.4 % (38.5-71.5); PLATELET COUNT (AUTO) 213 K/uL (152-348); RED BLOOD CELL COUNT(AUTO) 5.07 MIL/uL (4.06-5.63); WHITE BLOOD COUNT (AUTO) 20.3 K/uL (3.6-10.2)
[2017-10-30 11:22] LABS: CREATININE 1.3 mg/dL (0.6-1.3); POTASSIUM 3.4 mmol/L (3.5-5.1)
[2017-10-30] MEDS: IRBESARTAN 150 MG PO SCH (11:30)
[2017-10-30 11:50] LABS: BAND % (MANUAL) 2 % (0-10); EOSINOPHILS % (MANUAL) 2 % (0-8); LYMPHOCYTES % (MANUAL) 8 % (20-40); METAMYELOCYTES % 2 % (0-1); MONOCYTES % (MANUAL) 7 % (2-10); NEUTROPHILS % (MANUAL) 79 % (42-75)
[2017-10-30 12:20] VITALS: BP 98/58
[2017-10-30] MEDS ORDERED: POTASSIUM CHLORIDE 20 MEQ TAB.PRT.SR PO ONE (12:30)
[2017-10-30] MEDS: ENOXAPARIN SODIUM 40 MG/0.4 ML DISP.SYRIN SQ SCH (12:43)
--- NOTE | 2017-10-30 13:25 | NUR ---
The patient is having lunch. The tech will perform routine venous Doppler ultrasound later.
[2017-10-30 13:39] LABS: *BILIRUBIN,URIN NEGATIVE (NEGATIVE); *BLOOD, URINE 1+ (NEGATIVE); *CLARITY,URINE CLEAR (CLEAR); *COLOR,URINE YELLOW (YELLOW); *KETONES,URINE NEGATIVE (NEGATIVE); *PROTEIN,URINE 1+ (NEGATIVE); LEUKOCYTE ESTERASE ,URINE NEGATIVE (NEGATIVE); NITRITE, URINE NEGATIVE (NEGATIVE); PH,URINE 6.5 (5.0-8.0); UGLUCOSE NEGATIVE (NEGATIVE)
[2017-10-30 13:48] LABS: BACTERIA,URINE NONE SEEN /HPF (NONE SEEN); SQUAMOUS EPITHELIAL CELL,UR FEW /HPF (NONE SEEN); WBC,URINE 0-3 /HPF (0-3)
[2017-10-30 16:00] VITALS: BP 118/73
--- NOTE | 2017-10-30 19:30 | NUR ---
START OF SHIFT NOTE : Patient is a 67-year old, male, admitted for medically supervised withdrawal from opiate and benzo , pt. placed on ATIVAN PRN, is 1:1 for safety (unsteady gate, agitation), pt. has IV mid-line at left UA for antibiotics. No PRNs given during day shift. Upon assessment pt. is resting in the room, alert, oriented x2 , restless, but follows commands. He complains of tremor time to time, difficulty falling and staying asleep, increased level of anxiety, flashes . He also states he feels better and remember everything what happens during the day. Last CIWA=8 at 16:00. Educated patient regarding the importance of compliance to treatment and medication regimen. All safety measures in place, side rails x2 in lower position. Will cont. to monitor patient closely.
--- NOTE | 2017-10-30 19:52 | NUR ---
END OF SHIFT Endorsed client to incoming nurse, client is a/o name, dtae, place, he is compliant with treatment plan. Client remains afebrile. He continues on 1:1 for safety d/t unsteady gait. Wound on R buttock noted with small clear drainage. Wound consult ordered. Client continues to present with anxious mood, flat affect, restless legs, fine tremors, flushed face, and fatigue. He consumed ~ 50 % of meals. Adequate PO fluid intake 2210mL, void x 4, stool x 2. Last CIWA 8 @ 1600. Call light within reach.
[2017-10-30 20:00] VITALS: BP 118/78
[2017-10-30] MEDS: TAMSULOSIN HCL 0.4 MG CAP.SR.24H PO SCH (21:28)
[2017-10-30] MEDS: ATORVASTATIN 40 MG TABLET PO SCH (21:28)
--- NOTE | 2017-10-31 06:48 | NUR ---
END OF SHIFT NOTE : Patient is a 67-year old, male, admitted for medically supervised withdrawal from opiate and benzo , pt. placed on ATIVAN PRN, is 1:1 for safety (unsteady gate, agitation), pt. has IV mid-line at left UA for antibiotics. Pt. is partially compliant with a TX plan, it was short period of restlessness during the night , pt is still confused, but follows commands, oriented x2 only . CIWA taken when pt. was awake, last CIWA=7 at 04:00. [id number] , voided x3, slept=7 hours. Safety measures in place : bed on lowest position with side rails x2 up for safety, all light within reach. Will continue to monitor closely and offer help.
[2017-10-31 07:27] LABS: BASOPHILS % (AUTO) 0.2 % (0.0-2.0); EOSINOPHILS # (AUTO) 0.2 K/uL (0.0-0.7); EOSINOPHILS % (AUTO) 1.3 % (0.0-7.0); HEMATOCRIT 50.2 % (36.7-47.1); HEMOGLOBIN 16.5 g/dL (12.5-16.3); LYMPHOCYTES # (AUTO) 1.7 K/uL (20.0-40.0); LYMPHOCYTES % (AUTO) 10.2 % (20.5-51.5); MEAN CORPUSCULAR HEMOGLOBIN 31.2 uug (23.8-33.4); MEAN CORPUSCULAR HGB CONC 33 g/dL (32.5-36.3); MEAN CORPUSCULAR VOLUME 95.1 fL (73.0-96.2); MONOCYTES % (AUTO) 12.2 % (0.0-11.0); NEUTROPHILS # (AUTO) 12.7 K/uL (1.8-8.9); NEUTROPHILS % (AUTO) 76.1 % (38.5-71.5); PLATELET COUNT (AUTO) 247 K/uL (152-348); RED BLOOD CELL COUNT(AUTO) 5.28 MIL/uL (4.06-5.63); WHITE BLOOD COUNT (AUTO) 16.7 K/uL (3.6-10.2)
[2017-10-31 07:31] LABS: CREATININE 1.1 mg/dL (0.6-1.3); PHOSPHOROUS 3.4 mg/dL (2.5-4.9)
--- NOTE | 2017-10-31 07:59 | NUR ---
START OF SHIFT RECEIVED PT SITTING UP IN ROOM, A/OX2, RESPIRATIONS EVEN AND UNLABORED. PT PRESENTS FACIAL FLUSHING AND FINE TREMORS. PT SMILES AND IS VERY POLITE UPON INTRODUCTION, APPEARS CALM. PT REPORTS THINKING ABOUT EVENTS DURING THIS HOSPITAL STAY AND VERBALIZES FEELING REMORSE. PT STATED, "I FEEL HORRIBLE WHEN I THINK ABOUT WHAT MY FAMILY HAS GONE THROUGH BECAUSE OF ME." ENCOURAGED PT TO VERBALIZE FEELINGS MORE OFTEN AND REASSURED PT. ENCOURAGED TO INCREASE FLUIDS FOR HYDRATION. PT IS PT HAS A MIDLINE IN L UA PATENT AND INTACT. PT HAS A SKIN TEAR ON R LOWER ARM DRSG DRY AND INTACT. PLACED ON 1:1 FOR UNSTEADY GAIT. SIDE RAILS UPX2, BED IS IN LOWEST POSITION. CALL LIGHT IS WITHIN REACH. ALL SAFETY MEASURES IN PLACE. WILL CONTINUE TO MONITOR.
[2017-10-31 08:00] VITALS: BP 123/86
[2017-10-31] MEDS: FLUTICASONE/VILANTEROL 1 EACH BLST.W.DEV INH SCH (08:56)
[2017-10-31] MEDS: METOPROLOL TARTRATE 50 MG TABLET PO SCH ×2 (08:57→20:57)
[2017-10-31] MEDS: AMLODIPINE 10 MG TABLET PO SCH (08:57)
[2017-10-31] MEDS: MULTIVITAMINS,THERAPEUTIC TABLET PO SCH (08:57)
[2017-10-31] MEDS: predniSONE 10 MG TABLET PO SCH (08:58)
[2017-10-31] MEDS: FAMOTIDINE 20 MG TABLET PO SCH ×2 (08:58→20:56)
[2017-10-31] MEDS: LACTOBACILLUS RHAMNOSUS GG 1 EACH CAPSULE PO SCH ×2 (08:59→20:56)
[2017-10-31] MEDS: ASPIRIN 81 MG TAB.CHEW GT SCH (08:59)
[2017-10-31] MEDS: DOCUSATE SODIUM 250 MG CAPSULE PO SCH (08:59)
[2017-10-31] MEDS: FOLIC ACID 1 MG TABLET PO SCH (08:59)
[2017-10-31] MEDS: ENOXAPARIN SODIUM 40 MG/0.4 ML DISP.SYRIN SQ SCH (09:00)
[2017-10-31] MEDS: FINASTERIDE 5 MG TABLET PO SCH (09:00)
[2017-10-31] MEDS: THIAMINE HCL 100 MG TABLET PO SCH (09:01)
[2017-10-31] MEDS: IRBESARTAN 150 MG PO SCH ×2 (09:10→09:41)
--- NOTE | 2017-10-31 09:13 | NUR ---
PT REFUSED LOVENOX SQ INJ DESPITE EXPLAINING RISKS AND BENEFITS.
[2017-10-31 12:00] VITALS: BP 111/69
[2017-10-31] MEDS: IPRATROPIUM BROMIDE 0.5 MG/2.5 ML NEBU NEB PRN (12:26)
[2017-10-31] MEDS: ALBUTEROL SULFATE 2.5 MG/ 0.5 ML NEBU NEB PRN (12:26)
--- NOTE | 2017-10-31 14:05 | NUR ---
BLOOD CULTURE RESULTS: GRAM POSITIVE COCCI. REPORTED BY ULISES FROM LAB. NOTIFIED.
--- NOTE | 2017-10-31 14:19 | NUR ---
WOUND CARE CONSULT: PT PRESENTS WITH RASH AND EXCORIATION TO BUTTOCKS. RECOMMENDATIONS MADE FOR SKIN CARE AND PROTECTION. PT IT AMBULATORY (WITH ASSISTANCE )AND CONTINENT. ALL SKIN PROTECTION MEASURES IN PLACE. WILL SEE PRN. Deo Dawson IN AGREEMENT WITH PLAN OF CARE. Addendum: 10/31/17 at 1421 by MAJOR GOMEZ RN Amended: Links added. Addendum: 10/31/17 at 1429 by MAJOR GOMEZ RN PT ALSO NOTED TO HAVE RT ELBOW DRY SCAB AND RT WRIST SKIN TEAR. PT STATES THAT HE DEVELOPS BUTTOCK RASHES AT TIMES AND THAT HE USES LOTRIMIN AT HOME.
[2017-10-31] MEDS ORDERED: BACITRACIN/POLYMYXIN B OINT 15 GM TUBE TOP SCH (14:30)
[2017-10-31] MEDS ORDERED: LORAZEPAM 1 MG TABLET PO PRN ×2 (15:15)
[2017-10-31 16:00] VITALS: BP 126/68
--- NOTE | 2017-10-31 16:06 | NUR ---
Clinical pharmacy note-Vancomycin dosing per pharmacy Subjective: To start Vancomycin dosing on this patient for sepsis. Objective: BUN 30 Scr 1.1 WBC 16.7 Temp 98.1 Ht 5'7" Wt 133 lbs Assessment/Plan: Will start Vancomycin 1gram IV every 19hrs(first dose today at 1700) and draw trough by 4th dose(not ordered yet) for expected trough around 15. Will monitor daily.
[2017-10-31] MEDS: BACITRACIN/POLYMYXIN B OINT 15 GM TUBE TOP SCH (16:59)
[2017-10-31] MEDS: CLOTRIMAZOLE 1% CREAM 30 GM TUBE TOP SCH (16:59)
[2017-10-31] MEDS ORDERED: CLOTRIMAZOLE 1% CREAM 30 GM TUBE TOP SCH (17:00)
[2017-10-31] MEDS ORDERED: VANCOMYCIN IV 1 G in PREMIXED 0 EACH IV SCH (17:00)
--- NOTE | 2017-10-31 17:00 | NUR ---
SKIN RASH AND EXCORIATION, AND RT WRIST SKIN TEAR CLEANSED AND DRESSING CHANGED ORDERED BY WOUND CARE NURSE.
--- NOTE | 2017-10-31 18:59 | NUR ---
END OF SHIFT LAST COWS 7 AND CIWA 7 @1600. PT IS A/O X4, PT APPEARS ORIENTED AND LESS CONFUSED. PT STATES HE IS REGAINING MORE MEMORY OF EVENTS THIS PAST WEEK AND WAS FEELING CONFUSED BEFORE BUT NOT ANYMORE. PT WAS AMBULATORY WITH THE BOAT DESIGNER ASSISTANCE, AMBULATED WITH PT FOR GAIT TRAINING AND WITH BOAT DESIGNER MULTIPLE TIMES. PT WAS VERY ACTIVE DURING SHIFT, PT PARTICIPATED IN GROUPS AND ACTIVITIES. BLOOD CULTURE RESULTS WERE: GRAM POSITIVE COCCI; MD AWARE. VANCO ORDERED AND GIVEN. MIDLINE ON L UPPER ARM FLUSHED, PATENT AND INTACT. WOUND CHANGED FOR RASH AND EXCORIATION ON BUTTOCKS AND R WRIST SKIN TEAR ORDERED BY WOUND CONSULT. ENCOURAGED PT TO INCREASE FLUIDS TO PROMOTE HYDRATION. ALL SAFETY MEASURES IN PLACE. WILL GIVE ALL PERTINENT INFO AND ENDORSEMENT TO SALON/SPA MANAGER NURSE.
--- NOTE | 2017-10-31 19:30 | NUR ---
START OF SHIFT NOTE : Patient is a 67-year old, male, admitted for medically, placed on ATIVAN PRN, is 1:1 for safety (unsteady gate, restlessness), pt. has IV mid-line at left UA for antibiotics. No PRNs given during day shift. Upon assessment pt. is resting in the room, alert, oriented x2 , restless, but follows commands. He complains of tremor time to time, insomnia, increased level of anxiety, flashes and body ache. He also states he feels better , but cant remember current date. Last CIWA=7at 16:00. Blood Culture result=cocci. Wound nurse assessment done, new orders given. Encouraged patient to participate in all unit activities and socializing more with other clients, when he will be able to do that. All safety measures in place, side rails x2 in lower position. Will cont. to monitor patient closely.
[2017-10-31] MEDS: ATORVASTATIN 40 MG TABLET PO SCH (20:56)
[2017-10-31] MEDS: TAMSULOSIN HCL 0.4 MG CAP.SR.24H PO SCH (20:57)
[2017-10-31 21:00] VITALS: BP 129/70
[2017-11-01 04:00] VITALS: BP 108/78
--- NOTE | 2017-11-01 04:00 | NUR ---
Pt. removed accidentally IV mid-line at left UA around 04:00 A.M.
--- NOTE | 2017-11-01 06:26 | NUR ---
END OF SHIFT NOTE : Patient is a 67-year old, male, admitted for medically supervised withdrawal from opiate and benzo, is 1:1 for safety (unsteady gate, agitation), pt. removed accidentally IV mid-line at left UA around 04:00 A.M. Pt. is partially compliant with a TX plan, it was short period of restlessness during the night , pt is still confused, but follows commands, oriented x2 only . Dressing changed at the right wrist, other dressing will be changed in A.M., when Z-Guard will be delivered from pharmacy. CIWA=7 taken when pt. was awake, last CIWA=7 at 04:00. Pusfiw=[id number] , voided x3, slept=7 hours. Safety measures in place : bed on lowest position with side rails x2 up for safety, all light within reach. Will continue to monitor closely and offer help.
--- NOTE | 2017-11-01 07:05 | NUR ---
Start of Shift Returned Item Clerk received report on 67 year old male admitted on 10/27/17 for medically supervised withdrawal from [place], Valium and Xanax. Pt endorses NKA, is a full code and regular diet. PMH of BPH, HYN, Hyperlipidemia, COPD, GERD, anxiety, depression, migraine, scoliosis, and Hep C. Pt currently has pneumonia and is positive for Cocci in his blood. Last COWS 7 and CIWA 7 recorded at 0400 per NOC report. Returned Item Clerk encounters pt in his room while receiving a breathing treatment. Pt is calm and cooperative and able to make needs known. A/O to name and place only, still exhibiting some confusion on date and time. Pt has a normal affect with full range of emotion. Clear speech. Bed in low position with wheels locked and side rails up x2. Will continue to monitor, support and encourage according to plan of care.
[2017-11-01] MEDS: IPRATROPIUM BROMIDE 0.5 MG/2.5 ML NEBU NEB PRN ×3 (07:14→20:20)
[2017-11-01] MEDS: ALBUTEROL SULFATE 2.5 MG/ 0.5 ML NEBU NEB PRN ×3 (07:14→20:20)
[2017-11-01 07:38] LABS: BASOPHILS # (AUTO) 0.1 K/uL (0.0-8.0); BASOPHILS % (AUTO) 0.4 % (0.0-2.0); EOSINOPHILS # (AUTO) 0.2 K/uL (0.0-0.7); EOSINOPHILS % (AUTO) 1.2 % (0.0-7.0); HEMATOCRIT 44.1 % (36.7-47.1); HEMOGLOBIN 14.5 g/dL (12.5-16.3); LYMPHOCYTES # (AUTO) 1.5 K/uL (20.0-40.0); LYMPHOCYTES % (AUTO) 9.5 % (20.5-51.5); MEAN CORPUSCULAR HEMOGLOBIN 31.2 uug (23.8-33.4); MEAN CORPUSCULAR HGB CONC 33 g/dL (32.5-36.3); MEAN CORPUSCULAR VOLUME 94.8 fL (73.0-96.2); MONOCYTES # (AUTO) 1.7 K/uL (2.0-10.0); MONOCYTES % (AUTO) 10.8 % (0.0-11.0); NEUTROPHILS # (AUTO) 12.3 K/uL (1.8-8.9); NEUTROPHILS % (AUTO) 78.1 % (38.5-71.5); PLATELET COUNT (AUTO) 230 K/uL (152-348); RED BLOOD CELL COUNT(AUTO) 4.65 MIL/uL (4.06-5.63); WHITE BLOOD COUNT (AUTO) 15.7 K/uL (3.6-10.2)
[2017-11-01 07:52] LABS: MAGNESIUM 1.9 mg/dL (1.8-2.4); POTASSIUM 3.9 mmol/L (3.5-5.1)
[2017-11-01 08:00] VITALS: BP 127/87
[2017-11-01] MEDS: ASPIRIN 81 MG TAB.CHEW GT SCH (08:52)
[2017-11-01] MEDS: FLUTICASONE/VILANTEROL 1 EACH BLST.W.DEV INH SCH (08:52)
[2017-11-01] MEDS: predniSONE 10 MG TABLET PO SCH (08:52)
[2017-11-01] MEDS: DOCUSATE SODIUM 250 MG CAPSULE PO SCH (08:53)
[2017-11-01] MEDS: LACTOBACILLUS RHAMNOSUS GG 1 EACH CAPSULE PO SCH ×2 (08:53→20:51)
[2017-11-01] MEDS: METOPROLOL TARTRATE 50 MG TABLET PO SCH ×2 (08:53→20:52)
[2017-11-01] MEDS: FOLIC ACID 1 MG TABLET PO SCH (08:53)
[2017-11-01] MEDS: AMLODIPINE 10 MG TABLET PO SCH (08:54)
[2017-11-01] MEDS: FAMOTIDINE 20 MG TABLET PO SCH ×2 (08:54→20:51)
[2017-11-01] MEDS: MULTIVITAMINS,THERAPEUTIC TABLET PO SCH (08:55)
[2017-11-01] MEDS: FINASTERIDE 5 MG TABLET PO SCH (08:55)
[2017-11-01] MEDS: THIAMINE HCL 100 MG TABLET PO SCH (08:55)
[2017-11-01] MEDS: ENOXAPARIN SODIUM 40 MG/0.4 ML DISP.SYRIN SQ SCH (08:56)
[2017-11-01] MEDS: BACITRACIN/POLYMYXIN B OINT 15 GM TUBE TOP SCH (08:57)
[2017-11-01] MEDS: CLOTRIMAZOLE 1% CREAM 30 GM TUBE TOP SCH ×2 (08:58→17:41)
--- NOTE | 2017-11-01 09:17 | NUR ---
Clinical pharmacy note-Vancomycin dosing per pharmacy Subjective: To continue Vancomycin dosing on this patient for bacteremia. Objective: BUN 31 Scr 1.0 WBC 15.7 Temp 98.3 Ht 5'7" Wt 133 lbs Assessment/Plan: Since srcr has decreased, will change Vancomycin dose from 1gram IVPB every 19hrs to vanco 1gm IVPB q18hr for expected trough around 15 mcg/ml at steady state. 2nd dose is due today at 1100. Plan to draw trough by 4th dose (not ordered yet) Will monitor daily.
[2017-11-01] MEDS ORDERED: VANCOMYCIN IV 1 G in PREMIXED 0 EACH IV SCH (11:00)
[2017-11-01 12:00] VITALS: BP 91/51
--- NOTE | 2017-11-01 15:37 | NUR ---
Endorsement Metal Furniture Assembly Supervisor endorsed report on 67 year old male admitted on 10/27/17 for medically supervised withdrawal from [place], Valium and Xanax. Pt endorses NKA, is a full code and regular diet. PMH of BPH, HYN, Hyperlipidemia, COPD, GERD, anxiety, depression, migraine, scoliosis, and Hep C. Pt currently has pneumonia and is positive for Cocci in his blood. Last COWS 2 and CIWA 2 recorded at 1200.Pt is polite, pleasant and cooperative. Pt with full range of emotions and congruent mood. Makes his needs known. Pt shows good insight and understands his plight.. Bed in low position with wheels locked and side rails up x2. Will continue to monitor, support and encourage according to plan of care.
--- NOTE | 2017-11-01 15:37 | NUR ---
TRANSFER OF CARE RECEIVED ENDORSEMENT FROM NURSE. PT IS A 67 Y/O M ADMITTED FOR OPIATE AND BENZO W/D. PT IS ON PRN SUBUTEX. LAST COWS 2 AND CIWA 2 @1200. VVS. PT IS A/OX3, RESPIRATIONS EVEN AND UNLABORED. PT HAS IV CATHETER 22G ON R FA IV SITE. PT HAS RASH W/ EXCORIATION ON BUTTOCKS DRESSING DRY AND INTACT. SKIN TEAR ON WRIST DRESSING DRY AND INTACT. ALL SAFETY MEASURES IN PLACE. CALL LIGHT WITHIN REACH. WILL CONTINUE TO MONITOR AND PROVIDE SUPPORT.
[2017-11-01 16:00] VITALS: BP 102/61
[2017-11-01] MEDS ORDERED: ASPI81TA31 PO (19:14)
[2017-11-01] MEDS ORDERED: FINA5TAB11 PO (19:14)
[2017-11-01] MEDS ORDERED: METO50TA16 PO (19:14)
[2017-11-01] MEDS ORDERED: ALBU2.5V13 NEB (19:14)
[2017-11-01] MEDS ORDERED: FLUT1BLS INH (19:14)
[2017-11-01] MEDS ORDERED: AMLO10TA2 PO (19:14)
[2017-11-01] MEDS ORDERED: TAMS-3 PO (19:14)
[2017-11-01] MEDS ORDERED: ATOR40TA PO (19:14)
[2017-11-01] MEDS ORDERED: FAMO20TA8 PO (19:14)
--- NOTE | 2017-11-01 19:24 | NUR ---
END OF SHIFT LAST COWS 6 AND CIWA 7 @1600. HAS BEEN COMPLIANT WITH THERAPEUTIC REGIMEN. PT HAD BREATHING TX X2 TODAY AND CONSUMED ALL MEALS. WILL BE DISCHARGED TOMORROW. ALL SAFETY MEASURES IN PLACE. CALL LIGHT WITHIN REACH. WILL GIVE PERTINENT DATA AND ENDORSEMENT TO DIRECTOR SOFTWARE QUALITY ASSURANCE NURSE.
[2017-11-01 20:00] VITALS: BP 113/66
--- NOTE | 2017-11-01 20:00 | NUR ---
Start of Shift Note Received a 67 y/o male px admitted on 10/27/2017 for medically supervised withdrawal from opiate and benzo. Px is placed on PRN Ativan. Px is to be D/C tomorrow 11/02/2017. Last reported COWS 6 and CIWA 7 by AM shift nurse. Px has a peripheral IV line on right dorsal hand. Bilateral hand tremors noted. Px stated "my anxiety is 2/10". Px is on 1 to 1 for safety. Bed on lowest position, and side rails up 2x. We'll continue to monitor.
--- NOTE | 2017-11-01 20:20 | NUR ---
Breathing tx Px requested for breathing tx. O2sat is 96% in RA. RT department called for breathing tx. We'll continue to monitor.
--- NOTE | 2017-11-01 20:30 | NUR ---
Luis D/C LORNA Villagomez came and examined px with order to discontinue Vancomycin IV.
[2017-11-01] MEDS: TAMSULOSIN HCL 0.4 MG CAP.SR.24H PO SCH (20:52)
[2017-11-01] MEDS: ATORVASTATIN 40 MG TABLET PO SCH (20:52)
--- NOTE | 2017-11-01 21:00 | NUR ---
IV peripheral line removed IV peripheral line on right dorsal hand D/C and removed. We'll continue to monitor.
[2017-11-02] VITALS: BP 119/74
--- NOTE | 2017-11-02 | NUR ---
COWS and CIWA deferred COWS and CIWA deferred due to the px is asleep, to assess if the px is awake per doctor's order. We'll continue to monitor.
[2017-11-02 04:00] VITALS: BP 137/86
--- NOTE | 2017-11-02 07:14 | NUR ---
End of Shift Note Px is to be D/C today 11/02/2017. During the shift at 2019, px requested for breathing tx. RT department was called for breathing tx. At 2029, CYBER SECURITY SPECIALIST Dahlia D/C Vancomycin IV antibiotic. At 2099, peripheral IV line on right dorsal hand D/C and removed. Pxs oral intake is 450 ml, voided 9x, No BM. At 0630, px is awake on bed in left side lying position. Bed on lowest position, side rails up 2x and call light within reach. We'll continue to monitor. Px endorsed to AM shift nurse.
--- NOTE | 2017-11-02 07:15 | NUR ---
Start of Shift Spinning Frame Tender received report on 67 year old male admitted on 10/27/17 for medically supervised withdrawal from [place], Valium and Xanax. Pt endorses NKA, is a full code and regular diet. PMH of BPH, HTN, Hyperlipidemia, COPD, GERD, anxiety, depression, migraine, scoliosis, and Hep C. Pt currently has pneumonia and is positive for Cocci in his blood, last administration of anti-biotics on NOC per report. Last COWS 6 and CIWA 7 recorded at 0400 per NOC report. Pt is calm and cooperative and able to make needs known. A/O x. Pt has a normal affect with full range of emotion. Clear speech. Bed in low position with wheels locked and side rails up x2. Will continue to monitor, support and encourage according to plan of care.
[2017-11-02 08:00] VITALS: BP 100/74
[2017-11-02] MEDS: FINASTERIDE 5 MG TABLET PO SCH (08:31)
[2017-11-02] MEDS: IRBESARTAN 150 MG PO SCH (08:31)
[2017-11-02] MEDS: ENOXAPARIN SODIUM 40 MG/0.4 ML DISP.SYRIN SQ SCH (08:35)
[2017-11-02] MEDS: AMLODIPINE 10 MG TABLET PO SCH (08:36)
[2017-11-02] MEDS: IPRATROPIUM BROMIDE 0.5 MG/2.5 ML NEBU NEB PRN (08:36)
[2017-11-02] MEDS: ALBUTEROL SULFATE 2.5 MG/ 0.5 ML NEBU NEB PRN (08:36)
[2017-11-02 08:37] VITALS: BP 100/74
[2017-11-02] MEDS: FAMOTIDINE 20 MG TABLET PO SCH (08:37)
[2017-11-02] MEDS: THIAMINE HCL 100 MG TABLET PO SCH (08:37)
[2017-11-02] MEDS: METOPROLOL TARTRATE 50 MG TABLET PO SCH (08:37)
[2017-11-02] MEDS: LACTOBACILLUS RHAMNOSUS GG 1 EACH CAPSULE PO SCH (08:37)
[2017-11-02] MEDS: FOLIC ACID 1 MG TABLET PO SCH (08:37)
[2017-11-02] MEDS: FLUTICASONE/VILANTEROL 1 EACH BLST.W.DEV INH SCH (08:38)
[2017-11-02] MEDS: ASPIRIN 81 MG TAB.CHEW GT SCH (08:38)
[2017-11-02] MEDS: MULTIVITAMINS,THERAPEUTIC TABLET PO SCH (08:38)
[2017-11-02] MEDS: BACITRACIN/POLYMYXIN B OINT 15 GM TUBE TOP SCH (08:39)
[2017-11-02] MEDS: CLOTRIMAZOLE 1% CREAM 30 GM TUBE TOP SCH (08:40)
[2017-11-02] MEDS ORDERED: predniSONE 10 MG TABLET PO SCH (09:00)
--- NOTE | 2017-11-02 10:45 | NUR ---
Discharge Pt and family educated on discharge procedure and timing. Educated on medication including indication and timing. Prescriptions provided. Educated on wound care and need to follow up with PCP when back home. Pt denies any HI/SI or A/VH or any associated symptoms. Pt last COWS 3 and CIWA 1. Pt had belongings returned. Home medications signed for and returned. Pt left the unit per wheelchair and accompanied by family. Pt is discharged to car service and will be transported to [facility].
== END 2017-11-02 10:45 | disposition home or self-care (01) | DRG 895 ==
LOC: UNDOADMIN 23:45 → SRC 23:45
PROVIDERS: ADMIT Internal Medicine; ATTEND Internal Medicine
PROC: HZ2ZZZZ Detoxification Services for Substance Abuse Treatment (ICD-10-PCS; principal; 2017-10-27)
PROC: 05H633Z Insertion of Infusion Device into Left Subclavian Vein, Percutaneous Approach (ICD-10-PCS; 2017-10-29)
PROC: HZ31ZZZ Individual Counseling for Substance Abuse Treatment, Behavioral (ICD-10-PCS; 2017-10-31)
PROC: HZ41ZZZ Group Counseling for Substance Abuse Treatment, Behavioral (ICD-10-PCS; 2017-10-31)
DX: F11.23 Opioid dependence with withdrawal (principal); I21.A1 Myocardial infarction type 2; J69.0 Pneumonitis due to inhalation of food and vomit; J96.01 Acute respiratory failure with hypoxia; J96.02 Acute respiratory failure with hypercapnia; N17.0 Acute kidney failure with tubular necrosis; J44.1 Chronic obstructive pulmonary disease with (acute) exacerbation; I50.9 Heart failure, unspecified; F13.239 Sedative, hypnotic or anxiolytic dependence with withdrawal, unspecified; G43.909 Migraine, unspecified, not intractable, without status migrainosus; F13.230 Sedative, hypnotic or anxiolytic dependence with withdrawal, uncomplicated; I27.81 Cor pulmonale (chronic); K21.9 Gastro-esophageal reflux disease without esophagitis; E86.0 Dehydration; E78.5 Hyperlipidemia, unspecified; Z79.899 Other long term (current) drug therapy; N40.0 Benign prostatic hyperplasia without lower urinary tract symptoms; R26.81 Unsteadiness on feet; Z91.89 Other specified personal risk factors, not elsewhere classified; F41.9 Anxiety disorder, unspecified; B19.20 Unspecified viral hepatitis C without hepatic coma; E87.6 Hypokalemia; F17.210 Nicotine dependence, cigarettes, uncomplicated; F32.9 Major depressive disorder, single episode, unspecified; R91.1 Solitary pulmonary nodule; M19.90 Unspecified osteoarthritis, unspecified site; I11.0 Hypertensive heart disease with heart failure
CPT/HCPCS: 36415; 70030-TC; 71045; 76770; 80307; 80346; 83690; 83735; 84100; 84443; 85025; 86592; 86705; 86803; 87040; 87086; 87340; 87806; 93005; 94640; 97116; 97530; G0480; J0692; J1450; J1650; J2060; J2358; J3370; J3411; J3590; J7050; J7060; J7512

== ENCOUNTER 2017-10-19 17:15 | Inpatient (IN) | payer BC, MEDICARE ==
[~2017-10-19] VITALS: Ht 170.2 cm; Wt 68.0 kg
[2017-10-19] MEDS: AZITHROMYCIN IV 500 MG in IV DEXTROSE 5% 250 ML IV SCH (00:55)
[~2017-10-19 17:15] MED LIST: BUDE10.2 IH; DULO60CA45 PO; FINA5TAB3 PO; FLUO60SO3 TP; IRBE150T30 PO; LINA72CA PO; NAPR220C46 PO; OMEP40CA37 PO; POTA10TA17 PO; TADA5TAB2 PO; TAMS0.4C34 PO; TIOT18CA3 IH; TIOT4MIS3 IH
[2017-10-19] MEDS ORDERED: IV NORMAL SALINE 1000 ML BAG IV ONE (17:30)
[2017-10-19 17:43] LABS: *BLOOD, URINE 3+ (NEGATIVE); *CLARITY,URINE SLIGHTLY CLOUDY (CLEAR); *KETONES,URINE TRACE (NEGATIVE); *PROTEIN,URINE 1+ (NEGATIVE); LEUKOCYTE ESTERASE ,URINE NEGATIVE (NEGATIVE); NITRITE, URINE NEGATIVE (NEGATIVE); PH,URINE 5.5 (5.0-8.0); UGLUCOSE NEGATIVE (NEGATIVE)
[2017-10-19 17:45] LABS: BASOPHILS # (AUTO) 0.1 K/uL (0.0-8.0); BASOPHILS % (AUTO) 0.5 % (0.0-2.0); EOSINOPHILS # (AUTO) 0.2 K/uL (0.0-0.7); EOSINOPHILS % (AUTO) 1.6 % (0.0-7.0); HEMATOCRIT 47.4 % (36.7-47.1); HEMOGLOBIN 15.8 g/dL (12.5-16.3); LYMPHOCYTES # (AUTO) 0.6 K/uL (20.0-40.0); LYMPHOCYTES % (AUTO) 4.2 % (20.5-51.5); MEAN CORPUSCULAR HEMOGLOBIN 31.9 uug (23.8-33.4); MEAN CORPUSCULAR HGB CONC 33 g/dL (32.5-36.3); MEAN CORPUSCULAR VOLUME 95.9 fL (73.0-96.2); MONOCYTES # (AUTO) 0.9 K/uL (2.0-10.0); MONOCYTES % (AUTO) 6.2 % (0.0-11.0); NEUTROPHILS # (AUTO) 12.9 K/uL (1.8-8.9); NEUTROPHILS % (AUTO) 87.5 % (38.5-71.5); PLATELET COUNT (AUTO) 196 K/uL (152-348); RED BLOOD CELL COUNT(AUTO) 4.94 MIL/uL (4.06-5.63); WHITE BLOOD COUNT (AUTO) 14.8 K/uL (3.6-10.2)
[2017-10-19 17:50] LABS: ETHANOL < 3 MG/DL (0-0)
[2017-10-19 17:55] LABS: ALANINE AMINOTRANSFERASE 29 U/L (16-63); ALKALINE PHOSPHATASE 49 U/L (50-136); ASPARTATE AMINOTRANSFERASE 42 U/L (15-37); BILIRUBIN,DIRECT 0.2 mg/dL (0.0-0.2); BILIRUBIN,TOTAL 0.7 mg/dL (0.2-1.0); CARBON DIOXIDE 27 mmol/L (21-32); CHLORIDE 104 mmol/L (98-107); CREATININE 2.3 mg/dL (0.6-1.3); GLUCOSE 154 mg/dL (74-106); TOTAL PROTEIN, SERUM 6.7 g/dL (6.4-8.2); UREA NITROGEN, BLOOD 26 mg/dL (7-18)
[2017-10-19 17:59] LABS: ACETAMINOPHEN < 2.0 ug/mL (10-30); POTASSIUM 4.9 mmol/L (3.5-5.1)
--- NOTE | 2017-10-19 18:05 | NUR ---
PT BACK FROM CT SCAN. PT PLACED ON BIPAP PER MD ORDER.
[2017-10-19 18:18] LABS: *AMPHETAMINE, URINE NEGATIVE (NEGATIVE); *BARBITURATE, URINE NEGATIVE (NEGATIVE); *CANNABINOID, URINE NEGATIVE (NEGATIVE); *COCCAINE, URINE NEGATIVE (NEGATIVE); *OPIATE, URINE NEGATIVE (NEGATIVE); *PHENCYCLIDINE SCREEN,URINE NEGATIVE (NEGATIVE)
--- NOTE | 2017-10-19 18:20 | NUR ---
PT AROUSABLE NOW, MOVING BUE.
[2017-10-19 18:21] LABS: THYROID STIMULATING HORMONE 4.521 mIU/mL (0.358-3.740)
[2017-10-19 18:29] LABS: *BILIRUBIN,URIN NEGATIVE (NEGATIVE); *COLOR,URINE BROWN (YELLOW)
[2017-10-19 18:41] LABS: RBC,URINE 80-100 /HPF (0-3); SQUAMOUS EPITHELIAL CELL,UR FEW /HPF (NONE SEEN)
[2017-10-19 19:14] LABS: ABG BASE EXCESS -7.4 mmol/L; ABG HCO3 22.6 mmol/L; ABG PCO2 65.3 mmHg (35.0-45.0); ABG PH 7.157 (7.350-7.450); ABG PO2 149.9 mmHg (75.0-100.0); ABG SITE LEFT RADIAL; ABG TOTAL HEMOGLOBIN 15.2 G/dL (13.5-18.0); COHb 1.7 % (0.5-1.5); MetHb 0.5 % (0.0-1.5); O2Hb 96.6 % (94.0-97.0); VENT MODE BIPAP
--- NOTE | 2017-10-19 19:18 | NUR ---
REPORT TAKEN FROM BILLY HOUSTON. ASSUMING PT CARE AT THIS TIME.
--- NOTE | 2017-10-19 19:18 | NUR ---
HANDS OFF REPORT GIVEN TO CHRISS CERVANTES
--- NOTE | 2017-10-19 21:53 | NUR ---
REPORT GIVEN TO BILLY WEI.
[2017-10-19 22:15] VITALS: BP 100/66
--- NOTE | 2017-10-19 22:15 | NUR ---
Received from ER via [facility] to Room 218 with Adm. Dx: ALOC, Acute Resp. Failure under the services of Dr. Bush. Pt seen and evaluated by PMD in ER. Routine [facility] nursing care rendered. Please see [facility] admission profile. Pt originally admitted less than 24 hours ago from [facility]. No family available at this time. Will gather admission data from previous med. records. In no apparent acute distress. Pt drowsy, weakly moves all extremities spontaneously, not following commands. Resumed on BiPap therapy. Monitor Sinus Tachy. Nursing comfort measures observed at all times. Aspiration precautions maintained.
--- NOTE | 2017-10-19 22:17 | NUR ---
Pt. admitted to [facility], under care of Dr. Bush Belongs List completed
--- NOTE | 2017-10-19 22:32 | NUR ---
PT ON BI/PAP IN ER WITH SETTINGS, INITIAL 08/02, PSV 7, RR14, 100% , ABG WAS DONE, RESULTS GIVEN TO DR HARRIS, NEW SETTINGS, 15/5 PSV 10, RATE 20, 100% , PT WITH FULL MASK, THEN O2 TRANSPORT WITH RT ASSIST APPROX. 2220 ,TO RM # 218, PT ON 100% NRB MASK, WHILE BEING TRANSPORTED, THEN BACK ON BI/PAP IN RM 218, STABLE. Samir PECK STRUCTURAL DESIGNER Addendum: 10/19/17 at 2235 by ARIANA PECK RT Amended: Links added.
[2017-10-19] MEDS ORDERED: ACETAMINOPHEN 650 MG SUPP.RECT RC PRN (23:30)
[2017-10-19] MEDS ORDERED: ONDANSETRON 4 MG/2 ML VIAL IV PRN (23:30)
[2017-10-19] MEDS ORDERED: CEFTRIAXONE 1 G in IV DEXTROSE 5% 50 ML IV SCH (23:30)
[2017-10-19] MEDS ORDERED: LEVALBUTEROL HCL NEB 0.63 MG/3 ML NEBU NEB PRN (23:30)
[2017-10-19] MEDS ORDERED: HEPARIN/D5W DRIP 500 ML ONE (23:31)
[2017-10-19 23:59] VITALS: BP 107/72
[2017-10-20] VITALS (18 sets, daily range): BP systolic 91–163; BP diastolic 59–94
--- NOTE | 2017-10-20 00:01 | NUR ---
After clarifying orders with Dr. Bush, pt started on Heparin drip per non-ACS protocol, no bolus. Bleeding precautions observed at all times.
[2017-10-20] MEDS ORDERED: AZITHROMYCIN 500 MG VIAL IV ONE (00:05)
[2017-10-20] MEDS ORDERED: CEFTRIAXONE 1 G VIAL ONE (00:06)
[2017-10-20] MEDS: HEPARIN/D5W DRIP 500 ML IV PRN (00:08)
[2017-10-20] MEDS: POTASSIUM CHLORIDE 20 MEQ in IV D5/ 0.9% NACL 1,000 ML IV PRN ×2 (00:19→16:51)
--- NOTE | 2017-10-20 03:00 | NUR ---
Noted pt more awake, following commands appropriately. Equal strong hand grasps, likes to cross legs all the time. Denies pain/discomfort by shaking head. IVs infusing without complication.
[2017-10-20] MEDS: methylPREDNISolone SOD SUCC 40 MG/ML VIAL IV SCH ×3 (05:19→21:57)
[2017-10-20 06:13] LABS: ABG BASE EXCESS -5.8 mmol/L; ABG HCO3 24.9 mmol/L; ABG PCO2 73.1 mmHg (35.0-45.0); ABG PO2 106.8 mmHg (75.0-100.0); ABG SITE LEFT RADIAL; ABG TOTAL HEMOGLOBIN 15.9 G/dL (13.5-18.0); COHb 0.9 % (0.5-1.5); MetHb 0.4 % (0.0-1.5); O2Hb 96.6 % (94.0-97.0); VENT MODE BIPAP
--- NOTE | 2017-10-20 07:00 | NUR ---
Spoke with Karina, Seelio tech re order for pulmonary VQ scan. Made aware of pt condition, on BiPap/Heparin drip/ and ALOC. Will check in with day RN later today if pt stable to have procedure done.
--- NOTE | 2017-10-20 08:00 | NUR ---
Lethagic, responds to stimuli. On Bipap 15/5 FIO2 100%. Heparin drip at 1150 units/hr, waiting for am labs.
[2017-10-20 08:52] LABS: BASOPHILS # (AUTO) 0.1 K/uL (0.0-8.0); BASOPHILS % (AUTO) 0.3 % (0.0-2.0); EOSINOPHILS % (AUTO) 0.1 % (0.0-7.0); HEMATOCRIT 50.8 % (36.7-47.1); HEMOGLOBIN 16.5 g/dL (12.5-16.3); LYMPHOCYTES # (AUTO) 0.4 K/uL (20.0-40.0); LYMPHOCYTES % (AUTO) 1.8 % (20.5-51.5); MEAN CORPUSCULAR HEMOGLOBIN 31.7 uug (23.8-33.4); MEAN CORPUSCULAR HGB CONC 33 g/dL (32.5-36.3); MEAN CORPUSCULAR VOLUME 97.4 fL (73.0-96.2); MONOCYTES % (AUTO) 4.7 % (0.0-11.0); NEUTROPHILS # (AUTO) 19.2 K/uL (1.8-8.9); NEUTROPHILS % (AUTO) 93.1 % (38.5-71.5); PLATELET COUNT (AUTO) 168 K/uL (152-348); RED BLOOD CELL COUNT(AUTO) 5.21 MIL/uL (4.06-5.63)
[2017-10-20 08:55] LABS: WHITE BLOOD COUNT (AUTO) 20.7 K/uL (3.6-10.2)
[2017-10-20 09:19] LABS: BILIRUBIN,TOTAL 0.5 mg/dL (0.2-1.0); PHOSPHOROUS 6.2 mg/dL (2.5-4.9); POTASSIUM 5.3 mmol/L (3.5-5.1); TOTAL PROTEIN, SERUM 6.2 g/dL (6.4-8.2)
[2017-10-20] MEDS ORDERED: HEPARIN SODIUM,PORCINE 5,000 UNITS/ML VIAL IV PRN ×2 (09:45)
[2017-10-20] MEDS: FAMOTIDINE. 20 MG/2 ML VIAL IV SCH ×2 (09:55→20:56)
--- NOTE | 2017-10-20 10:24 | NUR ---
Pt on BiPAP and FiO2 brought down to 90% per respiratory therapist. Pt saturating wnl.
[2017-10-20 10:32] LABS: BAND % (MANUAL) 12 % (0-10); LYMPHOCYTES % (MANUAL) 3 % (20-40); METAMYELOCYTES % 2 % (0-1); MONOCYTES % (MANUAL) 3 % (2-10); NEUTROPHILS % (MANUAL) 80 % (42-75)
--- NOTE | 2017-10-20 11:26 | NUR ---
Dr. Horan here to see pt. Full report given. New orders received and carried out.
[2017-10-20 11:37] LABS: ABG BASE EXCESS -5.8 mmol/L; ABG HCO3 21.9 mmol/L; ABG PCO2 50.9 mmHg (35.0-45.0); ABG PH 7.251 (7.350-7.450); ABG PO2 151.5 mmHg (75.0-100.0); ABG SITE LEFT RADIAL; ABG TOTAL HEMOGLOBIN 16.1 G/dL (13.5-18.0); CPAP,BG 15 cmH20; MetHb 0.4 % (0.0-1.5); VENT MODE BIPAP 15/5
--- NOTE | 2017-10-20 11:43 | NUR ---
Pt on BiPAP and FiO2 brought down to 50% per respiratory therapist.
--- NOTE | 2017-10-20 12:30 | NUR ---
Pt taken off BiPap and placed on 4 Lpm nasal cannula, tolerating well, will continue to monitor..
[2017-10-20] MEDS: ASPIRIN 300 MG RECTAL SUPP RC SCH (13:07)
--- NOTE | 2017-10-20 14:15 | NUR ---
Spoke with Dr. Horan on the telephone and ABG results reported. New orders received and MD vale for pt to wean off BiPAP if possible. No intubation needed at this time.
--- NOTE | 2017-10-20 14:30 | NUR ---
Pt weaned off BiPAP and placed on 3L NC per respiratory therapist. Pt with hx of COPD and saturating wnl 90-92%.
--- NOTE | 2017-10-20 15:25 | NUR ---
Spoke with Dr. George on the telephone regarding pt's increasing agitation and non-stop yelling. New orders received.
--- NOTE | 2017-10-20 18:07 | NUR ---
Pt received on BiPap, pt restless, mask re-adjusted and loosened.. pt transfered to CCU, FiO2 lowered to 90%..
[2017-10-20] MEDS: LORAZEPAM 2 MG/1 ML VIAL IV PRN (19:17)
--- NOTE | 2017-10-20 20:00 | NUR ---
Pt awake, confused and disoriented. Extremely restless and agitated, PRN meds given. Bilateral soft wrist restraints on with circ checks adequate. Safety and fall precautions observed at all times. Resp. easy and regular on nasal cannula. Pt with frequent attempts to get OOB to void; noted bladder distention. Rodriguez cath Fr. 16 aseptically and gently inserted by Joel Claros RN, pt tolerated procedure well. Stable VS and rhythm. No untoward effects from Heparin infusion. Nursing comfort measures maintained. Please see CCU flowsheet for full assessment and clinical data.
[2017-10-20] MEDS: ZIPRASIDONE MESYLATE 20 MG VIAL IM PRN (20:08)
[2017-10-20] MEDS ORDERED: CEFEPIME HCL 1 G in IV NORMAL SALINE 50 ML IV SCH (21:00)
[2017-10-20] MEDS ORDERED: CEFEPIME HCL 1 G in IV DEXTROSE 5% 50 ML IV SCH (21:00)
[2017-10-20] MEDS: CEFEPIME HCL 1 G in IV NORMAL SALINE 50 ML IV SCH (21:45)
[2017-10-20] MEDS: AZITHROMYCIN IV 500 MG in IV DEXTROSE 5% 250 ML IV SCH (23:29)
[2017-10-20] MEDS: MORPHINE SULFATE 4 MG/1 ML DISP.SYRIN IV PRN (23:33)
[2017-10-21] VITALS (23 sets, daily range): BP systolic 90–188; BP diastolic 60–118
[2017-10-21] MEDS: HEPARIN/D5W DRIP 500 ML IV PRN (00:12)
[2017-10-21 05:06] LABS: BILIRUBIN,TOTAL 0.4 mg/dL (0.2-1.0); CREATININE 1.4 mg/dL (0.6-1.3); PHOSPHOROUS 2.8 mg/dL (2.5-4.9); POTASSIUM 4.6 mmol/L (3.5-5.1); TOTAL PROTEIN, SERUM 5.6 g/dL (6.4-8.2)
[2017-10-21 05:18] LABS: BASOPHILS % (AUTO) 0.1 % (0.0-2.0); HEMATOCRIT 41.9 % (36.7-47.1); HEMOGLOBIN 13.7 g/dL (12.5-16.3); LYMPHOCYTES # (AUTO) 0.5 K/uL (20.0-40.0); LYMPHOCYTES % (AUTO) 3.3 % (20.5-51.5); MEAN CORPUSCULAR HEMOGLOBIN 31.3 uug (23.8-33.4); MEAN CORPUSCULAR HGB CONC 33 g/dL (32.5-36.3); MEAN CORPUSCULAR VOLUME 95.7 fL (73.0-96.2); MONOCYTES # (AUTO) 0.6 K/uL (2.0-10.0); MONOCYTES % (AUTO) 3.9 % (0.0-11.0); NEUTROPHILS # (AUTO) 14.2 K/uL (1.8-8.9); NEUTROPHILS % (AUTO) 92.7 % (38.5-71.5); PLATELET COUNT (AUTO) 157 K/uL (152-348); RED BLOOD CELL COUNT(AUTO) 4.38 MIL/uL (4.06-5.63); WHITE BLOOD COUNT (AUTO) 15.4 K/uL (3.6-10.2)
--- NOTE | 2017-10-21 06:00 | NUR ---
Stable night. Appears more calm but remains confused. Reality-orientation done and noted pt to laugh inappropriately. Able to titrate O2 down to 2L/min with sats above 94%. Heparin drip infusing well. No noted bleeding reactions.
[2017-10-21] MEDS: methylPREDNISolone SOD SUCC 40 MG/ML VIAL IV SCH ×2 (06:13→20:46)
[2017-10-21] MEDS: POTASSIUM CHLORIDE 20 MEQ in IV D5/ 0.9% NACL 1,000 ML IV PRN ×2 (06:34→19:28)
[2017-10-21] MEDS: ASPIRIN 300 MG RECTAL SUPP RC SCH (08:38)
[2017-10-21] MEDS: FAMOTIDINE. 20 MG/2 ML VIAL IV SCH ×2 (08:38→20:46)
[2017-10-21 09:22] LABS: ABG BASE EXCESS -3.9 mmol/L; ABG HCO3 19.8 mmol/L; ABG PCO2 32.4 mmHg (35.0-45.0); ABG PH 7.404 (7.350-7.450); ABG PO2 65.6 mmHg (75.0-100.0); ABG SITE RIGHT RADIAL; ABG TOTAL HEMOGLOBIN 14.5 G/dL (13.5-18.0); MetHb 0.3 % (0.0-1.5); O2Hb 92.9 % (94.0-97.0); VENT MODE Nasal Cannula
--- NOTE | 2017-10-21 10:15 | NUR ---
Dr. Horan here to see pt. Full report given. New orders received.
[2017-10-21] MEDS: LORAZEPAM 2 MG/1 ML VIAL IV PRN ×2 (11:09→19:46)
--- NOTE | 2017-10-21 11:13 | NUR ---
Pt noted to be increasingly agitated, restless, and attempting to get oob. Attempted to reorient pt, but pt confused. IV Ativan given. Will monitor for effectiveness.
[2017-10-21 12:04] LABS: *BILIRUBIN,URIN NEGATIVE (NEGATIVE); *BLOOD, URINE 3+ (NEGATIVE); *CLARITY,URINE SLIGHTLY CLOUDY (CLEAR); *COLOR,URINE YELLOW (YELLOW); *KETONES,URINE NEGATIVE (NEGATIVE); *PROTEIN,URINE 1+ (NEGATIVE); *UROBILINOGEN,URINE 0.2 E.U./dl (NORMAL); LEUKOCYTE ESTERASE ,URINE NEGATIVE (NEGATIVE); NITRITE, URINE NEGATIVE (NEGATIVE); UGLUCOSE NEGATIVE (NEGATIVE)
[2017-10-21 12:21] LABS: *CREATININE,URINE 163.9 mg/dL (30-125)
[2017-10-21 12:23] LABS: BACTERIA,URINE FEW /HPF (NONE SEEN); RBC,URINE 50-80 /HPF (0-3); SQUAMOUS EPITHELIAL CELL,UR FEW /HPF (NONE SEEN)
[2017-10-21] MEDS: ZIPRASIDONE MESYLATE 20 MG VIAL IM PRN ×2 (12:58→17:37)
--- NOTE | 2017-10-21 13:08 | NUR ---
IV Ativan noted to be ineffective. Pt noted to be increasing agitated, yelling, and trying to get oob and pull his lines. IM Humberto given as ordered. Will continue to monitor. Addendum: 10/21/17 at 1315 by MANOLO PARKER RN [id number] and calculated using Bazett's formula. QTC reported and cleared with pharmacy before administering medication.
--- NOTE | 2017-10-21 17:03 | NUR ---
Spoke with Dr. George on the telephone and full report given. New orders received. stated that it was okay to downgrade pt to telemetry status.
--- NOTE | 2017-10-21 19:30 | NUR ---
Report received. Patient awake, alert, mildly restless. Mumbling, disoriented and confused. Moving all extremities, pulling gown even with bilateral wrist restraints. O2 2 L NC; sat above 93%. On continuous Heparin drip at 950 units/H. Addendum: 10/21/17 at 2125 by DARWIN CALVILLO RN Amended: Links added.
--- NOTE | 2017-10-21 19:45 | NUR ---
Patient with increasing restlessness. Reoriented PRN. Ativan IV given. Addendum: 10/21/17 at 2229 by DARWIN CALVILLO RN Amended: Links added.
--- NOTE | 2017-10-21 20:00 | NUR ---
IV sites leaking. Dc'd. New IVs x2 started to LFA and RFA. Bath given; repositioned.
[2017-10-21] MEDS: CEFEPIME HCL 1 G in IV NORMAL SALINE 50 ML IV SCH (20:47)
--- NOTE | 2017-10-21 21:00 | NUR ---
Call placed to Dr. Bush re: patient's BPs.
--- NOTE | 2017-10-21 21:25 | NUR ---
Pharmacist David called; PTT=71.1 seconds. Heparin drip decreased to 800 units/H as per protocol. Next PTT in 6 H.
--- NOTE | 2017-10-21 21:53 | NUR ---
Dr. Bush called back; order received.
[2017-10-21] MEDS ORDERED: METOPROLOL TARTRATE 5 MG/5 ML VIAL IVP ONE (21:56)
[2017-10-21] MEDS: METOPROLOL TARTRATE 5 MG/5 ML VIAL IVP PRN (21:57)
--- NOTE | 2017-10-21 21:57 | NUR ---
Lopressor IV given as ordered PRN. Patient sleeping on and off. Still very confused. Addendum: 10/21/17 at 2227 by DARWIN CALVILLO RN Amended: Links added. Addendum: 10/21/17 at 2229 by DARWIN CALVILLO RN Amended: Links added.
[2017-10-21] MEDS: AZITHROMYCIN IV 500 MG in IV DEXTROSE 5% 250 ML IV SCH (23:15)
[2017-10-22] VITALS (16 sets, daily range): BP systolic 130–176; BP diastolic 60–125
[2017-10-22 03:50] LABS: BASOPHILS % (AUTO) 0.1 % (0.0-2.0); EOSINOPHILS % (AUTO) 0.1 % (0.0-7.0); HEMATOCRIT 39.5 % (36.7-47.1); HEMOGLOBIN 13.2 g/dL (12.5-16.3); LYMPHOCYTES # (AUTO) 0.4 K/uL (20.0-40.0); MEAN CORPUSCULAR HEMOGLOBIN 31.5 uug (23.8-33.4); MEAN CORPUSCULAR HGB CONC 33 g/dL (32.5-36.3); MEAN CORPUSCULAR VOLUME 94.5 fL (73.0-96.2); MONOCYTES # (AUTO) 0.5 K/uL (2.0-10.0); MONOCYTES % (AUTO) 4.4 % (0.0-11.0); NEUTROPHILS % (AUTO) 92.4 % (38.5-71.5); PLATELET COUNT (AUTO) 160 K/uL (152-348); RED BLOOD CELL COUNT(AUTO) 4.18 MIL/uL (4.06-5.63)
[2017-10-22 04:00] LABS: BILIRUBIN,TOTAL 0.5 mg/dL (0.2-1.0); CREATININE 1.1 mg/dL (0.6-1.3); PHOSPHOROUS 2.6 mg/dL (2.5-4.9); POTASSIUM 4.7 mmol/L (3.5-5.1); TOTAL PROTEIN, SERUM 5.8 g/dL (6.4-8.2)
[2017-10-22] MEDS: ZIPRASIDONE MESYLATE 20 MG VIAL IM PRN ×3 (06:07→23:14)
[2017-10-22] MEDS: METOPROLOL TARTRATE 5 MG/5 ML VIAL IVP PRN ×2 (06:10→12:35)
[2017-10-22] MEDS ORDERED: METOPROLOL TARTRATE 5 MG/5 ML VIAL IVP ONE (06:10)
[2017-10-22] MEDS: HEPARIN/D5W DRIP 500 ML IV PRN (06:15)
--- NOTE | 2017-10-22 06:48 | NUR ---
Still with periods of restlessness; remains confused and disoriented. Hypertensive and tachycardic when restless. Geodon IM and Lopressor IV given. Oral care rendered. With old blood to lips. No active bleeding noted. No hematuria. Addendum: 10/22/17 at 0649 by DARWIN CALVILLO RN Amended: Links added.
--- NOTE | 2017-10-22 07:10 | NUR ---
report received from Kasia CERVANTES. 67 yr old male admitted from [facility] Via ED as [facility] status for altered mental status and pneumonia. Patient had been confused, unable to follow command talking to self and hypertensive while awake. was on tele status but was converted back to [facility] secondary to IV Lopressor prn for hypertension. has 2 perpheral lines RA iv site for heparin drip at 800units per hr. and left arm IV site for IV D5 NS plus 20meq kcl at 80ml/hr. berrios catgheter intact. has. good urine output. ekg sinus rhythm. afebrile. call to dr robb re [facility] status and oral bleeding Addendum: 10/22/17 at 1337 by PRINCESS OTERO RN Amended: Links added.
[2017-10-22] MEDS: MORPHINE SULFATE 4 MG/1 ML DISP.SYRIN IV PRN ×3 (08:07→16:47)
--- NOTE | 2017-10-22 08:17 | NUR ---
medicated for generalized discomfort. patient disoriented, does not follow commands. wrist restraints in place. is coughing non productive . o2 2 liters nasal cannula Addendum: 10/22/17 at 0817 by PRINCESS OTERO RN Amended: Links added.
--- NOTE | 2017-10-22 09:00 | NUR ---
multiple attempts to insert a peripheral line unsuccessful PICC line order given by Kelsie Addendum: 10/22/17 at 1330 by PRINCESS OTERO RN Amended: Links added.
[2017-10-22] MEDS: ASPIRIN 300 MG RECTAL SUPP RC SCH (09:35)
[2017-10-22] MEDS: methylPREDNISolone SOD SUCC 40 MG/ML VIAL IV SCH ×2 (09:35→20:42)
[2017-10-22] MEDS: FAMOTIDINE. 20 MG/2 ML VIAL IV SCH ×2 (09:35→20:42)
--- NOTE | 2017-10-22 09:45 | NUR ---
seen by Bravo Capps. Addendum: 10/22/17 at 1040 by PRINCESS OTERO RN Amended: Links added.
[2017-10-22] MEDS: LORAZEPAM 2 MG/1 ML VIAL IV PRN ×2 (10:04→17:53)
--- NOTE | 2017-10-22 10:04 | NUR ---
medicated for generalized restlessness. remains on wrist restraints. hypertensive when awake and retless Addendum: 10/22/17 at 1032 by PRINCESS OTERO RN Amended: Links added. Addendum: 10/22/17 at 1040 by PRINCESS OTERO RN Amended: Links added.
[2017-10-22] MEDS: POTASSIUM CHLORIDE 20 MEQ in IV D5/ 0.9% NACL 1,000 ML IV PRN (10:10)
--- NOTE | 2017-10-22 12:40 | NUR ---
medicated for BP177/107 Addendum: 10/22/17 at 1244 by PRINCESS OTERO RN Amended: Links added.
--- NOTE | 2017-10-22 13:27 | NUR ---
PICC line 3 ports inserted by vascular specialistPopeye Addendum: 10/22/17 at 1327 by PRINCESS OTERO RN Amended: Links added. Addendum: 10/22/17 at 1330 by PRINCESS OTERO RN Amended: Links added.
--- NOTE | 2017-10-22 15:17 | NUR ---
pm care done. patient got wheezy with exertion. patient got agitated . medicated with geodon IM Addendum: 10/22/17 at 1518 by PRINCESS OTERO RN Amended: Links added.
[2017-10-22] MEDS: IPRATROPIUM BROMIDE 0.5 MG/2.5 ML NEBU NEB PRN (15:21)
--- NOTE | 2017-10-22 16:51 | NUR ---
medicated for generalized discomfort Addendum: 10/22/17 at 1653 by PRINCESS OTERO RN Amended: Links added.
--- NOTE | 2017-10-22 17:57 | NUR ---
medicated for agitation. bp up to 162/98 Addendum: 10/22/17 at 1757 by PRINCESS OTERO RN Amended: Links added.
[2017-10-22] MEDS ORDERED: NITROGLYCERIN IV 250 ML IV PRN (19:00)
--- NOTE | 2017-10-22 20:00 | NUR ---
RECEIVED PT. RESTING QUITELY, AROUSABLE TO NAME. ON O2 @ 2L NC W/ O2 SAT OF 96%. IVF D5NS W/ 20MEQ KCL @ 80CC/HR. VIA PICC LINE ON FATOU. 2 HEP LOCK INTACT & PATENT ON R & L FA. BILATERAL SOFT WRIST RESTRAINTS INTACT. REPOSITIONED PT ON HIS SIDE W/ HOB ELEVATED. NOT IN ANY DISTRESS.
[2017-10-22] MEDS: CEFEPIME HCL 1 G in IV NORMAL SALINE 50 ML IV SCH (20:42)
--- NOTE | 2017-10-22 22:00 | NUR ---
HS CARE DONE. ORAL CARE DONE. REPOSITIONED W/ HOB ELEVATED.
[2017-10-22] MEDS: AZITHROMYCIN IV 500 MG in IV DEXTROSE 5% 250 ML IV SCH (23:27)
[2017-10-23] VITALS (24 sets, daily range): BP systolic 109–193; BP diastolic 72–122
--- NOTE | 2017-10-23 | NUR ---
v/s stable . afebrile. repositioned & suctioned.
[2017-10-23] MEDS: POTASSIUM CHLORIDE 20 MEQ in IV D5/ 0.9% NACL 1,000 ML IV PRN ×2 (01:59→15:05)
[2017-10-23 05:23] LABS: BASOPHILS % (AUTO) 0.1 % (0.0-2.0); HEMATOCRIT 40.6 % (36.7-47.1); HEMOGLOBIN 13.3 g/dL (12.5-16.3); LYMPHOCYTES # (AUTO) 0.3 K/uL (20.0-40.0); MEAN CORPUSCULAR HEMOGLOBIN 31.3 uug (23.8-33.4); MEAN CORPUSCULAR HGB CONC 33 g/dL (32.5-36.3); MEAN CORPUSCULAR VOLUME 95.4 fL (73.0-96.2); MONOCYTES # (AUTO) 0.4 K/uL (2.0-10.0); MONOCYTES % (AUTO) 5.2 % (0.0-11.0); NEUTROPHILS # (AUTO) 7.5 K/uL (1.8-8.9); NEUTROPHILS % (AUTO) 90.7 % (38.5-71.5); PLATELET COUNT (AUTO) 163 K/uL (152-348); RED BLOOD CELL COUNT(AUTO) 4.26 MIL/uL (4.06-5.63); WHITE BLOOD COUNT (AUTO) 8.3 K/uL (3.6-10.2)
--- NOTE | 2017-10-23 05:30 | NUR ---
AM CARE DONE. ORAL CARE DONE. REPOSITIONED W/ HOB ELEVATED.
[2017-10-23 05:40] LABS: CREATININE 0.9 mg/dL (0.6-1.3); MAGNESIUM 2.1 mg/dL (1.8-2.4); PHOSPHOROUS 3.6 mg/dL (2.5-4.9); POTASSIUM 4.4 mmol/L (3.5-5.1)
[2017-10-23] MEDS: METOPROLOL TARTRATE 5 MG/5 ML VIAL IVP PRN ×2 (07:01→18:23)
--- NOTE | 2017-10-23 07:30 | NUR ---
REPORT received.Pt remains awake,confused,slightly agitated.Remains on Heparin gtt at 800 unit /hr.no s/s of bleeding.SR on monitor.BP remains to be elevated.Will continue to monitor.
[2017-10-23] MEDS: methylPREDNISolone SOD SUCC 40 MG/ML VIAL IV SCH ×2 (08:15→20:39)
[2017-10-23] MEDS: FAMOTIDINE. 20 MG/2 ML VIAL IV SCH ×2 (08:15→20:38)
[2017-10-23] MEDS: LORAZEPAM 2 MG/1 ML VIAL IV PRN ×2 (08:15→20:07)
--- NOTE | 2017-10-23 08:15 | NUR ---
Pt is very agitated.Medicated with Ativan 1mg IV.Will continue to monitor.
[2017-10-23] MEDS: HEPARIN/D5W DRIP 500 ML IV PRN (08:18)
--- NOTE | 2017-10-23 08:18 | NUR ---
Pt medicated with Heparin bolus 2600 unit IV per Heparin protocol.Increased Heparin gtt rate to (50 units /hr.Will continue to monitor.
[2017-10-23] MEDS: ASPIRIN 300 MG RECTAL SUPP RC SCH (08:19)
[2017-10-23] MEDS: MORPHINE SULFATE 4 MG/1 ML DISP.SYRIN IV PRN ×3 (10:28→20:25)
[2017-10-23] MEDS: ZIPRASIDONE MESYLATE 20 MG VIAL IM PRN (10:44)
--- NOTE | 2017-10-23 10:45 | NUR ---
Pt is very agitated.Denies pain.Pulling out catheter .Medicated with Geodon 5mg IM.Will continue to monitor.
--- NOTE | 2017-10-23 11:00 | NUR ---
Spoke with to update on pt condition.
[2017-10-23] MEDS: QUETIAPINE FUMARATE 25 MG TABLET PO SCH ×3 (12:34→23:50)
--- NOTE | 2017-10-23 13:30 | NUR ---
Spoke with regarding bleeding in Rodriguez catheter.New orders received to stop Heparin gtt.
--- NOTE | 2017-10-23 18:15 | NUR ---
PT PLACED ON BiPAP WITH PREVIOUS SETTINGS, PT IN RESP DISTRESS
--- NOTE | 2017-10-23 18:15 | NUR ---
Pt noted with respiratory distress.Placed on BIPAP.BP was up tuRTC344h,180s.Medicated with Lopressor 5mg IV as ordered.Will continue to monitor.
--- NOTE | 2017-10-23 20:00 | NUR ---
RECEIVED PT AWAKE, CONFUSED & DISORIENTED, BP IS 177/113, LOPRESSOR 5MG IVP WAS JUST GIVEN. PT. IS RESTLESS & AGITATED, MEDICATED W/ ATIVAN 1MG IVP ORDERED. FOREST. SOFT WRIST RESTRAINTS IN PLACE, PT TRYING TO PULL OUT IV.ON IVF D5NS W/ 20MEQ KCL @ 80CC/HR VIA PICC LINE ON FATOU. 2 HEP LOCK INTACT ON R & L FA., ARE PATENT. ON BIPAP CHANGED TO O2 @ 4L NC W/ O2 SAT OF 96%. REPOSITIONED IN BED W/ HOB ELEVATED.
[2017-10-23] MEDS: CEFEPIME HCL 1 G in IV NORMAL SALINE 50 ML IV SCH (20:38)
--- NOTE | 2017-10-23 22:00 | NUR ---
HS CARE CARE DONE. ORAL CARE DONE. REPOSITIONED.
[2017-10-23] MEDS: AZITHROMYCIN IV 500 MG in IV DEXTROSE 5% 250 ML IV SCH (23:16)
[2017-10-23] MEDS ORDERED: FLUCONAZOLE 200 MG/100 ML PIGGYBACK ONE (23:56)
[2017-10-24] VITALS (27 sets, daily range): BP systolic 129–190; BP diastolic 67–120
[2017-10-24] MEDS: FLUCONAZOLE 200 MG/NS 100ML IV 100 MG in PREMIXED 1 EACH IV SCH ×2 (00:01→23:39)
--- NOTE | 2017-10-24 04:00 | NUR ---
AM CARE DONE. ORAL CARE DONE. REPOSITIONED W/ HOB ELEVATED. PT. IS QUITE LAST NIGHT.
[2017-10-24 05:13] LABS: BASOPHILS % (AUTO) 0.1 % (0.0-2.0); HEMATOCRIT 43.9 % (36.7-47.1); HEMOGLOBIN 14.5 g/dL (12.5-16.3); LYMPHOCYTES # (AUTO) 0.4 K/uL (20.0-40.0); LYMPHOCYTES % (AUTO) 3.8 % (20.5-51.5); MEAN CORPUSCULAR HEMOGLOBIN 31.3 uug (23.8-33.4); MEAN CORPUSCULAR HGB CONC 33 g/dL (32.5-36.3); MEAN CORPUSCULAR VOLUME 94.8 fL (73.0-96.2); MONOCYTES # (AUTO) 0.7 K/uL (2.0-10.0); MONOCYTES % (AUTO) 6.8 % (0.0-11.0); NEUTROPHILS # (AUTO) 8.6 K/uL (1.8-8.9); NEUTROPHILS % (AUTO) 89.3 % (38.5-71.5); PLATELET COUNT (AUTO) 163 K/uL (152-348); RED BLOOD CELL COUNT(AUTO) 4.63 MIL/uL (4.06-5.63); WHITE BLOOD COUNT (AUTO) 9.6 K/uL (3.6-10.2)
[2017-10-24 05:25] LABS: CREATININE 1.1 mg/dL (0.6-1.3); MAGNESIUM 2.1 mg/dL (1.8-2.4); PHOSPHOROUS 3.8 mg/dL (2.5-4.9); POTASSIUM 4.6 mmol/L (3.5-5.1)
[2017-10-24] MEDS: QUETIAPINE FUMARATE 25 MG TABLET PO SCH ×4 (05:48→23:40)
[2017-10-24] MEDS: METOPROLOL TARTRATE 5 MG/5 ML VIAL IVP PRN (05:48)
--- NOTE | 2017-10-24 05:50 | NUR ---
BP-181/96, MEDICATED W/ LOPRESSOR 5MG IVP ORDERED.
[2017-10-24] MEDS: POTASSIUM CHLORIDE 20 MEQ in IV D5/ 0.9% NACL 1,000 ML IV PRN ×2 (05:53→17:26)
[2017-10-24] MEDS: methylPREDNISolone SOD SUCC 40 MG/ML VIAL IV SCH ×2 (08:25→20:43)
[2017-10-24] MEDS: ASPIRIN 300 MG RECTAL SUPP RC SCH (08:25)
[2017-10-24] MEDS: FAMOTIDINE. 20 MG/2 ML VIAL IV SCH ×2 (08:49→20:43)
[2017-10-24] MEDS ORDERED: FLUCONAZOLE 100 MG TABLET PO SCH (09:00)
[2017-10-24 09:11] LABS: ALBUMIN 2.7 g/dL (2.9-4.4); ALPHA-1-GLOBULIN 0.3 g/dL (0.0-0.4); ALPHA-2-GLOBULIN 0.8 g/dL (0.4-1.0); BETA GLOBULIN 0.7 g/dL (0.7-1.3); GAMMA GLOBULIN 0.8 g/dL (0.4-1.8); GLOBULIN, TOTAL 2.6 g/dL (2.2-3.9); M-SPIKE Not Observed g/dL (Not Observed)
--- NOTE | 2017-10-24 10:10 | NUR ---
Dr. Kellogg here to see pt. Full report given. aware of pt's continuously high SBP. stated to keep BP controlled with IV Ativan and IV hydralazine prn in the meanwhile. New orders received and carried out.
[2017-10-24] MEDS: hydrALAZINE HCL 20 MG/1 ML VIAL IV PRN ×3 (10:28→21:30)
[2017-10-24] MEDS: LORAZEPAM 2 MG/1 ML VIAL IV PRN ×2 (11:10→17:42)
--- NOTE | 2017-10-24 11:15 | NUR ---
Spoke with Dr. George on the telephone. Full report given. MD vale to downgrade pt to telemetry status. Addendum: 10/24/17 at 1131 by MANOLO PARKER RN [facility] Status not telemetry
[2017-10-24] MEDS ORDERED: hydrALAZINE HCL 25 MG TABLET PO PRN (13:00)
--- NOTE | 2017-10-24 14:23 | NUR ---
Dr. Horan here to see pt. Full report given. New orders received.
[2017-10-24] MEDS: MORPHINE SULFATE 4 MG/1 ML DISP.SYRIN IV PRN (19:37)
--- NOTE | 2017-10-24 20:00 | NUR ---
Pt awake and very confused, restless and noisy. Tachycardic and hypertensive. PRN meds given to keep calm. See EMar. Fall and safety precautions observed at all times. Bilateral soft wrist restraints on, circ checks adequate. Please see CCU flowsheet for full assessment and clinical data.
--- NOTE | 2017-10-24 20:30 | NUR ---
Pt remains hypertensive even when calm. Dr. Cortez (personal loan specialist for cardiology) notified, new orders received. Pt 's condition status changed back to CCU; to start Nitroglycerin drip and titrate per MD parameters.
[2017-10-24] MEDS: NITROGLYCERIN IV 250 ML IV PRN (20:39)
[2017-10-24] MEDS: CEFEPIME HCL 1 G in IV NORMAL SALINE 50 ML IV SCH (21:24)
[2017-10-24] MEDS: ALBUTEROL SULFATE 1.25 MG/3 ML NEBU NEB PRN (23:15)
[2017-10-24] MEDS: IPRATROPIUM BROMIDE 0.5 MG/2.5 ML NEBU NEB PRN (23:15)
[2017-10-25] VITALS (71 sets, daily range): BP systolic 104–185; BP diastolic 41–110
[2017-10-25] MEDS: AZITHROMYCIN IV 500 MG in IV DEXTROSE 5% 250 ML IV SCH (00:26)
[2017-10-25] MEDS: LORAZEPAM 2 MG/1 ML VIAL IV PRN ×3 (00:32→20:45)
[2017-10-25] MEDS ORDERED: CLONIDINE-TTS 1 PATCH TD SCH (01:00)
--- NOTE | 2017-10-25 01:00 | NUR ---
Started on Clonidine patch per Dr. Bush's order. Actively titrating Nitroglycerin drip (See IV Spreadsheet). Safety and fall precautions maintained at all times. Overall pt more calm. Close monitoring continues.
[2017-10-25] MEDS ORDERED: CLONIDINE-TTS 1 PATCH TD ONE (02:01)
[2017-10-25] MEDS: MORPHINE SULFATE 4 MG/1 ML DISP.SYRIN IV PRN ×2 (04:44→19:50)
[2017-10-25 05:21] LABS: BASOPHILS % (AUTO) 0.2 % (0.0-2.0); HEMATOCRIT 41.8 % (36.7-47.1); HEMOGLOBIN 14.1 g/dL (12.5-16.3); LYMPHOCYTES # (AUTO) 0.4 K/uL (20.0-40.0); LYMPHOCYTES % (AUTO) 3.6 % (20.5-51.5); MEAN CORPUSCULAR HEMOGLOBIN 31.6 uug (23.8-33.4); MEAN CORPUSCULAR HGB CONC 34 g/dL (32.5-36.3); MEAN CORPUSCULAR VOLUME 93.6 fL (73.0-96.2); MONOCYTES # (AUTO) 1.1 K/uL (2.0-10.0); MONOCYTES % (AUTO) 10.6 % (0.0-11.0); NEUTROPHILS # (AUTO) 9.1 K/uL (1.8-8.9); NEUTROPHILS % (AUTO) 85.6 % (38.5-71.5); PLATELET COUNT (AUTO) 173 K/uL (152-348); RED BLOOD CELL COUNT(AUTO) 4.46 MIL/uL (4.06-5.63); WHITE BLOOD COUNT (AUTO) 10.6 K/uL (3.6-10.2)
[2017-10-25 05:32] LABS: CREATININE 1.1 mg/dL (0.6-1.3); PHOSPHOROUS 3.1 mg/dL (2.5-4.9); POTASSIUM 3.8 mmol/L (3.5-5.1)
--- NOTE | 2017-10-25 06:00 | NUR ---
Continues to require bilateral soft wrist restraints, circ checks adequate. Overall less restless and agitated. Sleeps at periodic intervals. BP under control with Nitroglycerin infusing. Please see CCU flowsheet for trends and clinical data.
[2017-10-25] MEDS: QUETIAPINE FUMARATE 25 MG TABLET PO SCH ×3 (06:55→17:39)
[2017-10-25] MEDS: POTASSIUM CHLORIDE 20 MEQ in IV D5/ 0.9% NACL 1,000 ML IV PRN ×2 (07:38→20:39)
[2017-10-25] MEDS: ASPIRIN 300 MG RECTAL SUPP RC SCH (07:49)
[2017-10-25] MEDS: methylPREDNISolone SOD SUCC 40 MG/ML VIAL IV SCH ×2 (07:49→20:25)
[2017-10-25] MEDS: FAMOTIDINE. 20 MG/2 ML VIAL IV SCH ×2 (07:49→20:24)
--- NOTE | 2017-10-25 09:04 | NUR ---
Dr. Lamb here to see pt. Full report given. No new orders received.
--- NOTE | 2017-10-25 11:00 | NUR ---
Dr. Horan here to see pt. Full report given. New orders received.
[2017-10-25] MEDS: AMLODIPINE 10 MG TABLET PO SCH (16:08)
[2017-10-25] MEDS: METOPROLOL TARTRATE 25 MG TABLET PO SCH ×2 (16:09→20:26)
[2017-10-25] MEDS: CEFEPIME HCL 1 G in IV NORMAL SALINE 50 ML IV SCH (20:21)
[2017-10-25] MEDS: ALBUTEROL SULFATE 1.25 MG/3 ML NEBU NEB PRN (20:36)
[2017-10-25] MEDS: IPRATROPIUM BROMIDE 0.5 MG/2.5 ML NEBU NEB PRN (20:36)
[2017-10-25] MEDS: NITROGLYCERIN IV 250 ML IV PRN (20:39)
--- NOTE | 2017-10-25 21:00 | NUR ---
Pt was extremely restless, aggressive, with multiple attempts to get out of bed. Medicated with Morphine, Ativan (See EMar for administration times). Continues to require bilateral soft wrist restraints for safety; circulation checks adequate. Unable to follow directions, very confused. Please see CCU flowsheet for full assessment and clinical data.
[2017-10-25] MEDS: hydrALAZINE HCL 20 MG/1 ML VIAL IV PRN (23:10)
[2017-10-25] MEDS: FLUCONAZOLE 200 MG/NS 100ML IV 100 MG in PREMIXED 1 EACH IV SCH (23:14)
[2017-10-26] VITALS (50 sets, daily range): BP systolic 119–172; BP diastolic 71–132
[2017-10-26] MEDS: MORPHINE SULFATE 4 MG/1 ML DISP.SYRIN IV PRN ×4 (00:36→20:58)
[2017-10-26] MEDS: LORAZEPAM 2 MG/1 ML VIAL IV PRN ×5 (01:54→21:53)
--- NOTE | 2017-10-26 02:00 | NUR ---
Able to wean off Nitroglycerin drip x one hour but resumed when BP trends going up again. Close monitoring continues.
[2017-10-26 05:07] LABS: BASOPHILS % (AUTO) 0.1 % (0.0-2.0); HEMATOCRIT 39.2 % (36.7-47.1); LYMPHOCYTES # (AUTO) 0.3 K/uL (20.0-40.0); LYMPHOCYTES % (AUTO) 3.6 % (20.5-51.5); MEAN CORPUSCULAR HEMOGLOBIN 31.3 uug (23.8-33.4); MEAN CORPUSCULAR HGB CONC 33 g/dL (32.5-36.3); MONOCYTES # (AUTO) 0.9 K/uL (2.0-10.0); MONOCYTES % (AUTO) 9.1 % (0.0-11.0); NEUTROPHILS # (AUTO) 8.2 K/uL (1.8-8.9); NEUTROPHILS % (AUTO) 87.2 % (38.5-71.5); PLATELET COUNT (AUTO) 164 K/uL (152-348); RED BLOOD CELL COUNT(AUTO) 4.17 MIL/uL (4.06-5.63); WHITE BLOOD COUNT (AUTO) 9.4 K/uL (3.6-10.2)
[2017-10-26] MEDS: hydrALAZINE HCL 20 MG/1 ML VIAL IV PRN (05:21)
[2017-10-26] MEDS: QUETIAPINE FUMARATE 25 MG TABLET PO SCH ×5 (05:22→23:01)
[2017-10-26 05:26] LABS: MAGNESIUM 2.1 mg/dL (1.8-2.4); PHOSPHOROUS 4.1 mg/dL (2.5-4.9); POTASSIUM 4.4 mmol/L (3.5-5.1)
--- NOTE | 2017-10-26 06:00 | NUR ---
No critical values on lab. Unable to wean off NTG drip. Required 2 doses Apresoline IV for BP to be within parameters. Noted more urine output after midnight. Nursing comfort measures and safety precautions observed at all times. Still requires soft restraints for max. safety. Pt sits up and attempts to get OOB and pulls out O2 and IV upon release of restraints; circulation checks adequate. PO intake poor, states does not want anything in mouth; meds crushed, mixed in apple sauce but pt spits. Oral care done. Please see CCU flowsheet for trends and clinical data.
--- NOTE | 2017-10-26 07:30 | NUR ---
Dr. Lamb int he unit to examine patient.
[2017-10-26] MEDS: METOPROLOL TARTRATE 25 MG TABLET PO SCH (09:57)
[2017-10-26] MEDS: methylPREDNISolone SOD SUCC 40 MG/ML VIAL IV SCH (09:57)
[2017-10-26] MEDS: ASPIRIN 300 MG RECTAL SUPP RC SCH (09:58)
[2017-10-26] MEDS: AMLODIPINE 10 MG TABLET PO SCH (09:58)
[2017-10-26] MEDS ORDERED: METOPROLOL TARTRATE 25 MG TABLET PO SCH (10:15)
[2017-10-26] MEDS ORDERED: METOPROLOL TARTRATE 25 MG TABLET PO ONE (10:30)
--- NOTE | 2017-10-26 10:30 | NUR ---
Pulmonary services, Dr. Horan in the unit to examine patient; full report given see orders. Addendum: 10/26/17 at 1112 by MATY ROY RN the above note intended for another patient.
[2017-10-26] MEDS: POTASSIUM CHLORIDE 20 MEQ in IV D5/ 0.9% NACL 1,000 ML IV PRN (11:25)
--- NOTE | 2017-10-26 11:55 | NUR ---
Patient remains restless and agitated attempting to get out of bed, unsupervised, and at this time pulling his berrios catheter. Restrains reapplied and berrios catheter area covered with sheets. Patient educated on the danger to forcefully pull catheter out with reinforcement needed. Patient remains confused.
--- NOTE | 2017-10-26 11:59 | NUR ---
patient repositioned in bed and left toward left side with pillows supporting his back, patient restless and agitated and cannot maintain himself in that position.
--- NOTE | 2017-10-26 12:11 | NUR ---
Dr. Lamb notified that patient remains restless, and agitated despite been medicated orders to increase frequency of ativan to 1mg. ivp [id number] received.
[2017-10-26] MEDS ORDERED: ASPIRIN 81 MG TAB.CHEW PO SCH (12:30)
--- NOTE | 2017-10-26 15:00 | NUR ---
CALLED UP DR STEELE AND OBTAINED AN ORDER TO DOWNGRADE PT TO TELEMETRY WITH A SITTER. MANAGEMENT TECH IS AWARE.
[2017-10-26] MEDS: predniSONE 20 MG TABLET PO SCH (18:01)
--- NOTE | 2017-10-26 19:00 | NUR ---
PT TRANSFERRED TO 216 VIA BED WITH A SITTER. RESTRAINTS DISCONTINUED. PT IS SLEEPING SOUNDLY.
--- NOTE | 2017-10-26 20:30 | NUR ---
Received report from day shift nurse. Patient awake alert pleasantly confused trying to get out of bed. No SOB denies chest pain but c/o headache & bilateral arm discomfort. Vital signs WNL, Tele shows normal sinus rhythm. Bilateral arm bruised & swollen, sacral/buttocks redness noted. See pictures in chart. Warm pack applied on both arms, instructed patient to keep arms elevated on a pillow to reduce swelling. 1:1 sitter in room for patient's safety. Right arm PICC line intact & patent, medicated w/ Morphine for pain PRN. Will continue to monitor.
[2017-10-26] MEDS: CEFEPIME HCL 1 G in IV NORMAL SALINE 50 ML IV SCH (20:49)
[2017-10-26] MEDS: FAMOTIDINE 20 MG TABLET PO SCH (20:51)
[2017-10-26] MEDS: METOPROLOL TARTRATE 50 MG TABLET PO SCH (20:51)
[2017-10-26] MEDS ORDERED: ATORVASTATIN 40 MG TABLET PO SCH (21:00)
[2017-10-26] MEDS: ALBUTEROL SULFATE 1.25 MG/3 ML NEBU NEB PRN (22:26)
[2017-10-26] MEDS: IPRATROPIUM BROMIDE 0.5 MG/2.5 ML NEBU NEB PRN (22:26)
[2017-10-26] MEDS: FLUCONAZOLE 200 MG/NS 100ML IV 100 MG in PREMIXED 1 EACH IV SCH (23:00)
--- NOTE | 2017-10-26 23:39 | NUR ---
Patient unable to keep still, remains confused & agitated, trying to get out of bed. Patient stated he just want to check his "horses". Fall precaution observed. Early dose of Seroquel 25 mg po given. Vital signs stable, sinus rhtyhm on the monitor.
[2017-10-27 00:03] VITALS: BP 134/70
[2017-10-27] MEDS: POTASSIUM CHLORIDE 20 MEQ in IV D5/ 0.9% NACL 1,000 ML IV PRN (01:31)
[2017-10-27] MEDS: LORAZEPAM 2 MG/1 ML VIAL IV PRN ×2 (02:19→06:28)
--- NOTE | 2017-10-27 04:00 | NUR ---
Patient wheezing, on breathing treatment at this time. Tele sinus rhythm.
[2017-10-27] MEDS: ALBUTEROL SULFATE 1.25 MG/3 ML NEBU NEB PRN ×2 (04:02→13:37)
[2017-10-27] MEDS: IPRATROPIUM BROMIDE 0.5 MG/2.5 ML NEBU NEB PRN ×2 (04:02→13:37)
[2017-10-27 04:16] VITALS: BP 144/97
[2017-10-27] MEDS: QUETIAPINE FUMARATE 25 MG TABLET PO SCH ×3 (06:28→18:00)
[2017-10-27 06:44] LABS: BASOPHILS % (AUTO) 0.1 % (0.0-2.0); EOSINOPHILS % (AUTO) 0.1 % (0.0-7.0); HEMATOCRIT 43.4 % (36.7-47.1); HEMOGLOBIN 14.7 g/dL (12.5-16.3); LYMPHOCYTES # (AUTO) 0.6 K/uL (20.0-40.0); LYMPHOCYTES % (AUTO) 5.2 % (20.5-51.5); MEAN CORPUSCULAR HEMOGLOBIN 31.5 uug (23.8-33.4); MEAN CORPUSCULAR HGB CONC 34 g/dL (32.5-36.3); MONOCYTES # (AUTO) 1.2 K/uL (2.0-10.0); MONOCYTES % (AUTO) 11.6 % (0.0-11.0); NEUTROPHILS # (AUTO) 8.9 K/uL (1.8-8.9); PLATELET COUNT (AUTO) 191 K/uL (152-348); RED BLOOD CELL COUNT(AUTO) 4.67 MIL/uL (4.06-5.63); WHITE BLOOD COUNT (AUTO) 10.7 K/uL (3.6-10.2)
[2017-10-27 07:01] LABS: CREATININE 1.1 mg/dL (0.6-1.3); PHOSPHOROUS 3.3 mg/dL (2.5-4.9); POTASSIUM 3.6 mmol/L (3.5-5.1)
--- NOTE | 2017-10-27 07:47 | NUR ---
RECEIVED SHIFT REPORT FROM RECORDS MANAGEMENT ASSISTANT NURSE. 1:1 SITTER AT BEDSIDE FOR SAFETY. PATIENT IS CONFUSED, APPEARS TO BE HAVING WITHDRAWAL SYMPTOMS. SON AT BEDSIDE REQUESTING FOR CHANGES OF MEDICAL CARE TO BE DONE SUCH D/C MEEK, D/C PICCLINE. EXPLAINED TO SON THAT IMPORTANCE AND NEED FOR MEEK CATHETER AND PICCLINE PLACEMENT. STABLE CONDITION AT THIS TIME, NO S/S OF DISTRESS. O2 2L NC. WILL CONTINUE TO MONITOR.
[2017-10-27] MEDS: FAMOTIDINE 20 MG TABLET PO SCH (08:21)
[2017-10-27] MEDS: predniSONE 20 MG TABLET PO SCH (08:21)
[2017-10-27] MEDS: AMLODIPINE 10 MG TABLET PO SCH (08:21)
[2017-10-27 08:22] VITALS: BP 138/75
[2017-10-27] MEDS: METOPROLOL TARTRATE 50 MG TABLET PO SCH (08:22)
[2017-10-27] MEDS ORDERED: ASPIRIN 81 MG TAB.CHEW PO SCH (09:00)
--- NOTE | 2017-10-27 10:55 | NUR ---
Noted pt ambulating with PT and SAP BI ARCHITECT using FWW. Tolerated 40ft. Per PT, pt needed 50% assist. No acute distress noted.
--- NOTE | 2017-10-27 12:18 | NUR ---
TEXTED DR. TORRES FOR MRI APPROVAL.
--- NOTE | 2017-10-27 14:17 | NUR ---
SPOKE TO NURSE LAM , PATIENT UNSTABLE FOR MRI , WE'LL TRY TOMORROW OK WITH NURSE.
[2017-10-27] MEDS ORDERED: CEFE1VIA7 IM (16:56)
[2017-10-27] MEDS ORDERED: ATOR40TA PO (16:56)
[2017-10-27] MEDS ORDERED: FLUC100T8 PO (16:56)
[2017-10-27] MEDS ORDERED: ALBU1.25 NEB (16:56)
[2017-10-27] MEDS ORDERED: CLON1PAT TD (16:56)
[2017-10-27] MEDS ORDERED: QUET25TA PO (16:56)
[2017-10-27] MEDS ORDERED: METO50TA16 PO (16:56)
[2017-10-27] MEDS ORDERED: ASPI81TA31 PO (16:56)
[2017-10-27] MEDS ORDERED: AMLO10TA2 PO (16:56)
[2017-10-27] MEDS ORDERED: QUETIAPINE FUMARATE 25 MG TABLET PO PRN (17:15)
--- NOTE | 2017-10-27 18:30 | NUR ---
PATIENT DISCHARGED AND TRANSFERRED TO [facility] 3RD FLOOR AT THIS TIME IN STABLE CONDITION, NO S/S OF DISTRESS. VITAL SIGNS STABLE. CONTINUES TO BE CONFUSED, ATTEMPTS TO GET OUT OF BED, REQUIRES SITTER 1:1 FOR SAFETY. BELONGINGS CHECKLIST SIGNED AND COMPLETED. MD ORDERED TO HAVE MEEK CATHETER DC/ED AND TO HAVE PICCLINE IN PLACE. MEEK DC/ED, ID BAND TAKEN OFF, TELEMETRY RETURNED TO SHAFTING WORKER. DISCHARGE INSTRUCTIONS/EDUCATION, DOCUMENTS GIVEN TO PATIENT. PATIENT WAS NOT ABLE TO SIGN DISCHARGE PAPERS DUE TO PATIENT'S MENTAL STATUS AND HAD 2ND NURSE WITNESS AND SIGN. PATIENT ALSO HAS A RING LOCKED IN THE 1ST FLOOR SAFE, WHICH REQUIRES WOOD DRILLING MACHINE OPERATOR AND SECURITY TO ACCESS. THERE IS A FORM THAT WAS COMPLETED FOR THE RING TO BE PLACED IN THE SAFE DOWNSTAIRS. GIVEN TO [facility] STAFF AND [facility] VERBALIZED THAT THEY WILL OBTAIN PATIENT'S RING AND PLACE THE RING IN THEIR OWN SAFE ON THE 3RD FLOOR. PATIENT TRANSFERRED ON HOSPITAL BED TO 3RD FLOOR IN SAFE CONDITION.
[2017-10-27] MEDS ORDERED: LORAZEPAM 1 MG TABLET PO ONE (20:15)
[2017-10-28] MEDS ORDERED: LORAZEPAM 1 MG TABLET PO SCH (09:00)
[2017-10-28] MEDS ORDERED: predniSONE 20 MG TABLET PO SCH (09:00)
[2017-10-29] MEDS ORDERED: LORAZEPAM 1 MG TABLET PO SCH (09:00)
[2017-10-30] MEDS ORDERED: LORAZEPAM 1 MG TABLET PO SCH (09:00)
== END 2017-10-27 19:30 | DRG 871 ==
LOC: ER 17:17 → TELE 21:53 → TELE-TD 22:28 → CCU 10-20 08:55 → MED 10-26 19:00 → TELE 10-26 19:30 → MED 10-27 11:00
PROVIDERS: ADMIT Internal Medicine; ATTEND Internal Medicine
PROC: 5A09357 Assistance with Respiratory Ventilation, Less than 24 Consecutive Hours, Continuous Positive Airway Pressure (ICD-10-PCS; principal; 2017-10-19)
PROC: 02HV33Z Insertion of Infusion Device into Superior Vena Cava, Percutaneous Approach (ICD-10-PCS; 2017-10-22)
DX: A41.9 Sepsis, unspecified organism (principal); J69.0 Pneumonitis due to inhalation of food and vomit; I21.4 Non-ST elevation (NSTEMI) myocardial infarction; E43 Unspecified severe protein-calorie malnutrition; J96.01 Acute respiratory failure with hypoxia; J96.02 Acute respiratory failure with hypercapnia; N17.0 Acute kidney failure with tubular necrosis; G92 Toxic encephalopathy; I50.21 Acute systolic (congestive) heart failure; F33.9 Major depressive disorder, recurrent, unspecified; F13.231 Sedative, hypnotic or anxiolytic dependence with withdrawal delirium; F11.23 Opioid dependence with withdrawal; D68.32 Hemorrhagic disorder due to extrinsic circulating anticoagulants; R65.20 Severe sepsis without septic shock; Z68.23 Body mass index [BMI] 23.0-23.9, adult; I11.0 Hypertensive heart disease with heart failure; I25.10 Atherosclerotic heart disease of native coronary artery without angina pectoris; B19.20 Unspecified viral hepatitis C without hepatic coma; T45.515A Adverse effect of anticoagulants, initial encounter; Y92.538 Other ambulatory health services establishments as the place of occurrence of the external cause; R31.29 Other microscopic hematuria; K21.9 Gastro-esophageal reflux disease without esophagitis; J84.10 Pulmonary fibrosis, unspecified; J44.9 Chronic obstructive pulmonary disease, unspecified; Y84.6 Urinary catheterization as the cause of abnormal reaction of the patient, or of later complication, without mention of misadventure at the time of the procedure; Y92.238 Other place in hospital as the place of occurrence of the external cause; E86.0 Dehydration; E78.5 Hyperlipidemia, unspecified; N40.0 Benign prostatic hyperplasia without lower urinary tract symptoms; F41.9 Anxiety disorder, unspecified
CPT/HCPCS: 36415; 36569; 36600; 70030-TC; 70450; 71045; 80307; 83735; 83970; 84100; 84155; 84156; 84165; 84300; 84443; 85025; 85730; 87040; 87070; 87086; 92610; 93005; 93307; 94640; 94660; 94664; A4217; A4663; G0480; G0480-TC; J0360; J0456; J0692; J0696; J1450; J1644; J2060; J2270; J2920; J3480; J3486; J3490; J3590; J7030; J7042; J7060; J7512; J7614